=== PATIENT | female | born 1970 | race Caucasian/White ===

== ENCOUNTER 2017-08-16 15:47 | Emergency (ER) | payer SELFPAY ==
--- OUTSIDE RECORDS SUMMARY | 2017-08-16 15:49 | XMS REPORT ---
:1970 [facility] Address [address] [place] [address] Dr. Bruno [address] [place] [id number] Care Team Providers Name Role Phone CONCHA VILLALPANDO Unavailable Unavailable Problems This patient has no known problems. Allergies, Adverse Reactions, Alerts This patient has no known allergies or adverse reactions. Medications This patient has no known medications. Results Test Description Test Time Test Comments Text Results Atomic Results Result Comments RAPID DRUG SCREEN, URINE 2017-05-16 12:50:00 Test Item Value Reference Range Comments BARBITURATE URINE (BEAKER) (test svys=085) Negative Negative BENZODIAZEPINE SCREEN URINE (BEAKER) (test btor=883) Negative Negative COCAINE (METAB.) SCREEN (BEAKER) (test iybt=4680) Negative Negative METHADONE SCREEN (BEAKER) (test woiq=7382) Negative Negative OPIATE SCREEN URINE (BEAKER) (test vnfs=809) Negative Negative CANNABINOID SCREEN URINE (BEAKER) (test xgwg=405) Positive Negative AMPH/METHAMPH SCREEN (BEAKER) (test xgmm=5193) Negative Negative PHENCYCLIDINE SCREEN URINE (BEAKER) (test wkpd=888) Negative Negative OXYCODONE SCREEN URINE (BEAKER) (test taxx=9421) Negative Negative DRUG CUTOFF CONC.Cocaine 300 ng/mL Cannabinoid 50 ng/mL Benzodiazepine 200 ng/mLBarbiturate 200 ng/ mLPhencyclidine 25 ng/mLOpiate 300 ng/mLMethadone 300 ng/mLAmphetamine/ 1000 ng/mL MethamphetamineOxycodone 300 ng/mLThis assay provides an unconfirmed qualitative test result for the clinical management of patients in emergency situations. Chain of custody not maintained. Some mlsp-tbj-ipqeste medications, as well as adulterants, may cause inaccurate results. Clinical correlation should be applied. A more comprehensive drug screen or confirmation of a detected drug may be performed upon request.RAD, CHEST, 1 VIEW, NON [id number] 12:49:00Reason for exam:-&gt ;chest painIs the patient ?->UnknownShould this be performed at the bedside?->YesFINAL REPORT Chest one view AP 05/16/2017 12:49 PM CLINICAL HISTORY: chest pain COMPARISON: None available FINDINGS: The lungs are clear. Cardiomediastinal contours are within normal limits. The central pulmonary vasculature is not engorged. IMPRESSION: Unremarkable frontal chest radiograph. Signed: Lebron Downey Verified Date/Time: 05/16/2017 12:49:42 Reading Location: [address] Consult Reading Room CREATINE KINASE (CK), TOTAL AND [id number] 12:27:00 Test Item Value Reference Range Comments CREATINE KINASE TOTAL (BEAKER) (test cjlo=025) 49 U/L 29-200 CREATINE KINASE-MB (BEAKER) (test hukj=628) 0.8 ng/mL 0.0-6.6 CREATINE KINASE-MB INDEX (BEAKER) (test yvrd=531) 1.6 % CK-MB Reference Range:<6.7 Normal6.7-10.0 Borderline>10.0 AbnormalSALICYLATE [id number] 12:25:00 Test Item Value Reference Range Comments SALICYLATE LEVEL (BEAKER) (test eqmx=432) < mg/dL 15.0-30.0 Therapeutic Range: 15.0-30.0 mg/dLToxic: >30.0 mg/dL Lethal: >70.0 mg/dLACETAMINOPHEN [id number] 12:25:00 Test Item Value Reference Range Comments ACETAMINOPHEN LEVEL (BEAKER) (test tehe=024) < ug/mL 10.0-30.0 Therapeutic Range: 10.0-30.0 g/mLToxic Levels: >200.0 g/mLURINALYSIS W / [id number] 12:24:00 Test Item Value Reference Range Comments COLOR (BEAKER) (test pfgx=070) Yellow CLARITY (BEAKER) (test ftad=072) Hazy SPECIFIC GRAVITY UA (BEAKER) (test 1.018 1.001-1.035 wpfu=905) PH UA (BEAKER) (test dqmp=042) 7.0 5.0-8.0 PROTEIN UA (BEAKER) (test xfld=769) 10 mg/dL Negative GLUCOSE UA (BEAKER) (test mcel=073) Negative Negative KETONES UA (BEAKER) (test acdf=446) Negative Negative BILIRUBIN UA (BEAKER) (test ebnt=299) Negative Negative BLOOD UA (BEAKER) (test feor=356) Negative Negative NITRITE UA (BEAKER) (test jiee=425) Negative Negative LEUKOCYTE ESTERASE UA (BEAKER) (test Negative Negative wlnw=759) UROBILINOGEN UA (BEAKER) (test qaej=002) 0.2 mg/dL 0.2-1.0 RBC UA (BEAKER) (test gxth=025) 0 /HPF WBC UA (BEAKER) (test txkg=268) 1 /HPF MUCUS (BEAKER) (test xkmx=6707) Many SQUAMOUS EPITHELIAL (BEAKER) (test 2 /HPF llho=298) AMORPHOUS CRYSTALS (BEAKER) (test Few rfes=4597) SOURCE(BEAKER) (test fcwr=5700) Urine, Clean Catch HEPATIC FUNCTION [id number] 12:20:00 Test Item Value Reference Range Comments TOTAL PROTEIN (BEAKER) (test pzjc=599) 7.0 gm/dL 6.0-8.3 ALBUMIN (BEAKER) (test dcty=2168) 4.2 g/dL 3.5-5.0 BILIRUBIN TOTAL (BEAKER) (test jizn=100) 0.6 mg/dL 0.2-1.2 BILIRUBIN DIRECT (BEAKER) (test ofhp=941) 0.2 mg/dL 0.1-0.5 ALKALINE PHOSPHATASE (BEAKER) (test qupp=970) 56 U/L 40-150 AST (SGOT) (BEAKER) (test yeaw=455) 13 U/L 5-34 ALT (SGPT) (BEAKER) (test pxhy=162) 9 U/L 6-55 BASIC METABOLIC [id number] 12:20:00 Test Item Value Reference Range Comments SODIUM (BEAKER) (test 139 meq/L 136-145 iqjk=123) POTASSIUM (BEAKER) (test 3.5 meq/L 3.5-5.1 pnwc=321) CHLORIDE (BEAKER) (test 107 meq/L 98-107 etva=014) CO2 (BEAKER) (test 23 meq/L 22-29 itfm=245) BLOOD UREA NITROGEN 11 mg/dL 7-21 (BEAKER) (test yqzi=445) CREATININE (BEAKER) 0.59 mg/dL 0.57-1.25 (test qpgo=684) GLUCOSE RANDOM (BEAKER) 108 mg/dL 70-105 (test znyj=689) CALCIUM (BEAKER) (test 9.3 mg/dL 8.4-10.2 mkxx=343) EGFR (BEAKER) (test 110 mL/min/1.73 sq INSUFFICIENT CLINICAL DATA qseo=6676) m TO CALCULATE ESTIMATED GFR. [id number] 12:18:00 Test Item Value Reference Range Comments ETHANOL (BEAKER) (test diha=497) < mg/dL <=10 CBC W/PLT COUNT & AUTO [id number] 11:50:00 Test Item Value Reference Range Comments WHITE BLOOD CELL COUNT (BEAKER) (test irrs=188) 9.6 K/ L 3.5-10.5 RED BLOOD CELL COUNT (BEAKER) (test ufne=413) 4.67 M/ L 3.93-5.22 HEMOGLOBIN (BEAKER) (test jwnq=231) 15.4 GM/DL 11.2-15.7 HEMATOCRIT (BEAKER) (test kdqn=462) 45.9 % 34.1-44.9 MEAN CORPUSCULAR VOLUME (BEAKER) (test uegi=522) 98.3 fL 79.4-94.8 MEAN CORPUSCULAR HEMOGLOBIN (BEAKER) (test 33.0 pg 25.6-32.2 bvdu=491) MEAN CORPUSCULAR HEMOGLOBIN CONC (BEAKER) (test 33.6 GM/DL 32.2-35.5 jhqg=875) RED CELL DISTRIBUTION WIDTH (BEAKER) (test 12.8 % 11.7-14.4 ofdu=358) PLATELET COUNT (BEAKER) (test gipg=145) 233 K/CU MM 150-450 MEAN PLATELET VOLUME (BEAKER) (test afvo=113) 10.5 fL 9.4-12.3 NUCLEATED RED BLOOD CELLS (BEAKER) (test 0 /100 WBC 0-0 ijbl=199) NEUTROPHILS RELATIVE PERCENT (BEAKER) (test 71 % iqkd=596) LYMPHOCYTES RELATIVE PERCENT (BEAKER) (test 23 % wqzz=551) MONOCYTES RELATIVE PERCENT (BEAKER) (test 6 % xepb=275) EOSINOPHILS RELATIVE PERCENT (BEAKER) (test 0 % lkqq=856) BASOPHILS RELATIVE PERCENT (BEAKER) (test 0 % ijkz=005) NEUTROPHILS ABSOLUTE COUNT (BEAKER) (test 6.77 K/ L 1.56-6.13 blum=274) LYMPHOCYTES ABSOLUTE COUNT (BEAKER) (test 2.16 K/ L 1.18-3.74 qiuz=286) MONOCYTES ABSOLUTE COUNT (BEAKER) (test 0.57 K/ L 0.24-0.36 ytxk=467) EOSINOPHILS ABSOLUTE COUNT (BEAKER) (test 0.03 K/ L 0.04-0.36 cdif=001) BASOPHILS ABSOLUTE COUNT (BEAKER) (test 0.02 K/ L 0.01-0.08 xfbv=087) IMMATURE GRANULOCYTES-RELATIVE PERCENT (BEAKER) 0 % 0-1 (test qqlv=8008)
--- OUTSIDE RECORDS SUMMARY | 2017-08-16 15:49 | XMS REPORT | Clinical Summary ---
:1970 Author Organization [facility] Address [address] [place] [address] Phone Care Team Providers Name Role Phone Unavailable Primary Care Provider Unavailable Allergies No Known Allergies Current Medications Prescription Sig. Disp. Refills Start Date End Date Status traMADol (ULTRAM) 50 mg Take 1 tablet (50 10 tablet 0 05/16/2017 Active tablet mg total) by mouth every 6 (six) hours as needed for Pain for up to 10 doses. Max Daily Amount: 200 mg Active Problems Not on file Encounters Date Type Specialty Care Team Description 05/16/2017 Emergency Emergency Medicine Norbreto Louise Other depression MD Pierce (Primary Dx);Other chronic pain 05/16/2017 Orders Only General Internal Medicine after 08/15/2016 Social History Tobacco Use Types Packs/Day Years Used Date Current Every Day Smoker Alcohol Use Drinks/Week oz/Week Comments No Sex Assigned at Date Recorded Not on file Last Filed Vital Signs Vital Sign Reading Time Taken Blood Pressure 142/82 05/16/2017 2:20 PM FAMILY PRACTICE PHYSICIAN ASSISTANT Pulse 78 05/16/2017 2:20 PM FAMILY PRACTICE PHYSICIAN ASSISTANT Temperature 36.7 C (98.1 F) 05/16/2017 2:20 PM FAMILY PRACTICE PHYSICIAN ASSISTANT Respiratory Rate 18 05/16/2017 2:20 PM FAMILY PRACTICE PHYSICIAN ASSISTANT Oxygen Saturation 100% 05/16/2017 2:20 PM FAMILY PRACTICE PHYSICIAN ASSISTANT Inhaled Oxygen Concentration - - Weight 72.6 kg (160 lb) 05/16/2017 11:15 AM FAMILY PRACTICE PHYSICIAN ASSISTANT Height - - Body Mass Index - - Plan of Treatment Not on file Results XR chest 1 view portable / bedside (05/16/2017 12:34 PM) Specimen Performing Laboratory GE RIS Narrative FINAL REPORT Chest one view AP 05/16/2017 12:49 PM CLINICAL HISTORY: chest pain COMPARISON: None available FINDINGS: The lungs are clear. Cardiomediastinal contours are within normal limits. The central pulmonary vasculature is not engorged. IMPRESSION: Unremarkable frontal chest radiograph. Signed: Lebron Downey MD Report Verified Date/Time:05/16/2017 12:49:42 Reading Location: [facility] [id number] Consult Reading Room Procedure Note Interface, External Ris In - 05/16/2017 1:07 PM FAMILY PRACTICE PHYSICIAN ASSISTANT FINAL REPORT Chest one view AP 05/16/2017 12:49 PM CLINICAL HISTORY: chest pain COMPARISON: None available FINDINGS: The lungs are clear. Cardiomediastinal contours are within normal limits. The central pulmonary vasculature is not engorged. IMPRESSION: Unremarkable frontal chest radiograph. Signed: Lebron Downey MD Report Verified Date/Time: 05/16/2017 12:49:42 Reading Location: [id number] Consult Reading Room Electrocardiogram, 12-lead (05/16/2017 11:39 AM)Only the most recent of2 resultswithin the time period is included. Specimen Performing Laboratory autoGraph Narrative Ventricular Rate 68 BPM Atrial Rate 68 BPM P-R Interval 134 ms QRS Duration 78 ms Q-T Interval 394 ms QTC Calculation(Bazett) 418 ms P [place] 60 degrees R [place] 49 degrees T [place] 41 degrees Poor data quality, interpretation may be adversely affected Normal sinus rhythm Cannot rule out Anterior infarct (cited on or before 16-MAY-2017) Abnormal ECG When compared with ECG of 16-MAY-2017 11:38, No significant change was found Confirmed by Zachariah PERSAUD, ALIX ([id number]) on 05/17/2017 7:50:30 AM Procedure Note Interface, External Ris In - 05/17/2017 7:50 AM FAMILY PRACTICE PHYSICIAN ASSISTANT Ventricular Rate 68 BPM Atrial Rate 68 BPM P-R Interval 134 ms QRS Duration 78 ms Q-T Interval 394 ms QTC Calculation(Bazett) 418 ms P [place] 60 degrees R [place] 49 degrees T [place] 41 degrees Poor data quality, interpretation may be adversely affected Normal sinus rhythm Cannot rule out Anterior infarct (cited on or before 16-MAY-2017) Abnormal ECG When compared with ECG of 16-MAY-2017 11:38, No significant change was found Confirmed by Zachariah PERSAUD BASANT ([id number]) on 05/17/2017 7:50:30 AM Rapid drug screen, urine (05/16/2017 11:35 AM) Component Value Ref Range Barbiturate Screen Negative Negative Benzodiazepine Screen Negative Negative Cocaine (Metab.) Screen Negative Negative Methadone Screen Negative Negative Opiate Screen Negative Negative Cannabinoid Screen Positive (A) Negative Amph/Methamph Screen Negative Negative Phencyclidine Screen Negative Negative Oxycodone Screen Negative Negative Specimen Performing Laboratory Urine - Urine, Clean Catch [address] [address] Narrative DRUGCUTOFF CONC. Cocaine 300 ng/mL Jyumzhrjdxx03 ng/mL Xwoopjyodenvsy472 ng/mL Barbiturate 200 ng/mL Uryffmopekpue83 ng/mL Zjrcai282 ng/mL Methadone 300 ng/mL Amphetamine/ 1000 ng/mL Methamphetamine Oxycodone 300 ng/mL This assay provides an unconfirmed qualitative test result for the clinical management of patients in emergency situations. Chain of custody not maintained. Some bxck-sfz-ijjquua medications, as well as adulterants, may cause inaccurate results. Clinical correlation should be applied. A more comprehensive drug screen or confirmation of a detected drug may be performed upon request. Urinalysis w/ Microscopic (05/16/2017 11:35 AM) Component Value Ref Range Color, UA Yellow Clarity, UA Hazy Specific [place], UA 1.018 1.001 - 1.035 pH, UA 7.0 5.0 - 8.0 Protein, UA 10 mg/dL (A) Negative Glucose, UA Negative Negative Ketones, UA Negative Negative Bilirubin, UA Negative Negative Blood, UA Negative Negative Nitrite, UA Negative Negative Leukocytes, UA Negative Negative Urobilinogen, UA 0.2 0.2 - 1.0 mg/dL RBC, UA 0 /HPF WBC, UA 1 /HPF Mucus Many Squam Epithel, UA 2 /HPF Amorphous Crystals Few Specimen Source Urine, Clean Catch Specimen Performing Laboratory Urine - Urine, Clean Catch [address] [address] CBC with platelet count + automated diff (05/16/2017 11:31 AM) Component Value Ref Range WBC 9.6 3.5 - 10.5 K/L RBC 4.67 3.93 - 5.22 M/L Hemoglobin 15.4 11.2 - 15.7 GM/DL Hematocrit 45.9 (H) 34.1 - 44.9 % MCV 98.3 (H) 79.4 - 94.8 fL MCH 33.0 (H) 25.6 - 32.2 pg MCHC 33.6 32.2 - 35.5 GM/DL RDW 12.8 11.7 - 14.4 % Platelets 233 150 - 450 K/CU MM MPV 10.5 9.4 - 12.3 fL nRBC 0 0 - 0 /100 WBC % Neutros 71 % % Lymphs 23 % % Monos 6 % % Eos 0 % % Baso 0 % # Neutros 6.77 (H) 1.56 - 6.13 K/L # Lymphs 2.16 1.18 - 3.74 K/L # Monos 0.57 (H) 0.24 - 0.36 K/L # Eos 0.03 (L) 0.04 - 0.36 K/L # Baso 0.02 0.01 - 0.08 K/L Immature Granulocytes-Relative 0 0 - 1 % Specimen Performing Laboratory Blood - Arm, [address] [address] CBC with platelet count + automated diff (05/16/2017 11:31 AM) Specimen Performing Laboratory Blood Narrative The following orders were created for panel order CBC with platelet count + automated diff. Procedure Abnormality Status --------- ------ CBC with platelet count ...[[id number]]AbnormalFinal result Please view results for these tests on the individual orders. Creatine Kinase (CK), Total and MB (05/16/2017 11:31 AM) Component Value Ref Range Total CK 49 29 - 200 U/L CK-MB 0.8 0.0 - 6.6 ng/mL MB Relative Index 1.6 % Specimen Performing Laboratory Blood - Arm, [address] [address] Narrative CK-MB Reference Range: <6.7Normal 6.7-10.0Borderline >10.0 Abnormal Ethanol (05/16/2017 11:31 AM) Component Value Ref Range Ethanol Lvl <10 <=10 mg/dL Specimen Performing Laboratory Blood - Arm, [address] [address] Acetaminophen level (05/16/2017 11:31 AM) Component Value Ref Range Acetaminophen Level <5.7 (L) 10.0 - 30.0 ug/mL Specimen Performing Laboratory Blood - Arm, [address] [address] Narrative Therapeutic Range: 10.0-30.0 g/mL Toxic Levels:>200.0 g/mL Salicylate level (05/16/2017 11:31 AM) Component Value Ref Range Salicylate Lvl <5.0 (L) 15.0 - 30.0 mg/dL Specimen Performing Laboratory Blood - Arm, [address] [address] Narrative Therapeutic Range: 15.0-30.0 mg/dL Toxic: >30.0 mg/dL Lethal:>70.0 mg/dL Hepatic function panel (05/16/2017 11:31 AM) Component Value Ref Range Protein, Total 7.0 6.0 - 8.3 gm/dL Albumin 4.2 3.5 - 5.0 g/dL Total Bilirubin 0.6 0.2 - 1.2 mg/dL Bilirubin, Direct 0.2 0.1 - 0.5 mg/dL Alkaline Phosphatase 56 40 - 150 U/L AST 13 5 - 34 U/L ALT 9 6 - 55 U/L Specimen Performing Laboratory Blood - Arm, [address] [address] Basic Metabolic Panel (05/16/2017 11:31 AM) Component Value Ref Range Sodium 139 136 - 145 meq/L Potassium 3.5 3.5 - 5.1 meq/L Chloride 107 98 - 107 meq/L CO2 23 22 - 29 meq/L BUN 11 7 - 21 mg/dL Creatinine 0.59 0.57 - 1.25 mg/dL Glucose 108 (H) 70 - 105 mg/dL Calcium 9.3 8.4 - 10.2 mg/dL EGFR 110Comment: INSUFFICIENT CLINICAL DATA TO CALCULATE mL/min/1.73 sq m ESTIMATED GFR. Specimen Performing Laboratory Blood - Arm, [address] [address] after 08/15/2016
--- NOTE | 2017-08-16 17:10 | ER ---
Nurse's Notes [facility] Name: Ada Downs Age: 47 yrs Sex: Female : 1970 Arrival Date: 08/16/2017 Time: 15:49 Bed 9 Private MD: None, None Diagnosis: Patient's unintentional underdosing of medication regimen Presentation: 08/16 15:55 Presenting complaint: Patient states: i was released from [facility] and i am on Geodon tw2 80mg twice a day, prozac 20 mg once day and gabapentin 300 mg once day. Transition of care: patient was not received from another setting of care. Onset of symptoms was August 16, 2017. Risk Assessment: Do you want to hurt yourself or someone else? Patient reports no desire to harm self or others. Initial Sepsis Screen: Does the patient meet any 2 criteria? No. Patient's initial sepsis screen is negative. Does the patient have a suspected source of infection? No. Patient's initial sepsis screen is negative. Care prior to arrival: None. 15:55 Method Of Arrival: Ambulatory tw2 15:55 Acuity: JEANNIE 5 tw2 Triage Assessment: 17:00 General: Appears in no apparent distress. well developed, well nourished, Behavior is rk2 calm, cooperative. 17:00 Pain: Denies pain. Neuro: No deficits noted. Level of Consciousness is alert, obeys rk2 commands, Oriented to person, place, time, situation. Respiratory: Airway is patent Respiratory effort is even, unlabored, Respiratory pattern is regular, symmetrical. Derm: Skin is pink, warm \T\ dry. 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 - Social history:: Smoking status: Patient/guardian denies using tobacco. - Ebola Screening: : Patient denies travel to an Ebola-affected area in the 21 days before illness onset. Screenin:00 Abuse screen: Denies threats or abuse. rk2 17:00 Nutritional screening: No deficits noted. Tuberculosis screening: No symptoms or risk rk2 factors identified. Fall Risk None identified. Vital Signs: 15:56 BP 124 / 91; Pulse 70; Resp 17; Temp 97.8(TE); Pulse Ox 98% on R/A; Weight 72.57 kg tw2 (R); Height 5 ft. 3 in. (160.02 cm); Pain 0/10; 17:28 Pulse 87; Resp 17; Pulse Ox 98% on R/A; rk2 15:56 Body Mass Index 28.34 (72.57 kg, 160.02 cm) tw2 ED Course: 15:49 Patient arrived in ED. mr 15:49 None, None is Private Physician. mr 15:56 Triage completed. tw2 15:56 Arm band placed on. tw2 15:59 Tori Dudley, RN is Primary Nurse. rk2 16:07 [facility] snw 16:07 Brady Mccoy MD is Attending Physician. snw 17:00 Patient has correct armband on for positive identification. Call light in reach. rk2 17:29 No provider procedures requiring assistance completed. Patient did not have IV access rk2 during this emergency room visit. Administered Medications: No medications were administered Outcome: 17:09 Discharge ordered by . snw 17:29 Discharged to home ambulatory. rk2 17:29 Condition: good 17:29 Discharge instructions given to patient, Prescriptions given X 3. 17:29 Patient left the ED. rk2 Signatures: Neida Johnson FNP-C FNP-[place]rd Ilene Ortega, RN RN tw2 Tori Dudley, RITCHIE RN rk2
--- NOTE | 2017-08-16 17:10 | EDPHYS ---
Physician Documentation [facility] Name: Ada Downs Age: 47 yrs Sex: Female : 1970 Arrival Date: 08/16/2017 Time: 15:49 Bed 9 Private MD: None, None ED Physician Brady Mccoy HPI: 08/16 19:40 This 47 yrs old Female presents to ER via Ambulatory with complaints of snw Medication Refill. 19:40 The patient presents to the emergency department requesting refill(s) for: prozac, snw neurontin, geodon. The patient chronically suffers from Schizophrenia, bipolar. It is unknown whether or not the patient has had similar symptoms in the past. The patient has not recently seen a physician. Pt just released from [facility], unable to get meds refilled. Last medicated yesterday. 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 - Social history:: Smoking status: Patient/guardian denies using tobacco. - Ebola Screening: : Patient denies travel to an Ebola-affected area in the 21 days before illness onset. ROS: 19:39 Constitutional: Negative for fever, chills, and weight loss, Eyes: Negative for injury, snw pain, redness, and discharge, ENT: Negative for injury, pain, and discharge, Neck: Negative for injury, pain, and swelling, Cardiovascular: Negative for chest pain, palpitations, and edema, Respiratory: Negative for shortness of breath, cough, wheezing, and pleuritic chest pain, Abdomen/GI: Negative for abdominal pain, nausea, vomiting, diarrhea, and constipation, Back: Negative for injury and pain, : Negative for injury, bleeding, discharge, and swelling, MS/Extremity: Negative for injury and deformity, Skin: Negative for injury, rash, and discoloration, Neuro: Negative for headache, weakness, numbness, tingling, and seizure, Psych: Negative for depression, anxiety, suicide ideation, homicidal ideation, and hallucinations. Exam: 19:39 Constitutional: This is a well developed, well nourished patient who is awake, alert, snw and in no acute distress. Head/Face: Normocephalic, atraumatic. Eyes: Pupils equal round and reactive to light, extra-ocular motions intact. Lids and lashes normal. Conjunctiva and sclera are non-icteric and not injected. Cornea within normal limits. Periorbital areas with no swelling, redness, or edema. ENT: Nares patent. No nasal discharge, no septal abnormalities noted. Tympanic membranes are normal and external auditory canals are clear. Oropharynx with no redness, swelling, or masses, exudates, or evidence of obstruction, uvula midline. Mucous membranes moist. Neck: Trachea midline, no thyromegaly or masses palpated, and no cervical lymphadenopathy. Supple, full range of motion without nuchal rigidity, or vertebral point tenderness. No Meningismus. Chest/axilla: Normal chest wall appearance and motion. Nontender with no deformity. No lesions are appreciated. Cardiovascular: Regular rate and rhythm with a normal S1 and S2. No gallops, murmurs, or rubs. Normal PMI, no JVD. No pulse deficits. Respiratory: Lungs have equal breath sounds bilaterally, clear to auscultation and percussion. No rales, rhonchi or wheezes noted. No increased work of breathing, no retractions or nasal flaring. Abdomen/GI: Soft, non-tender, with normal bowel sounds. No distension or tympany. No guarding or rebound. No evidence of tenderness throughout. Back: No spinal tenderness. No costovertebral tenderness. Full range of motion. Skin: Warm, dry with normal turgor. Normal color with no rashes, no lesions, and no evidence of cellulitis. MS/ Extremity: Pulses equal, no cyanosis. Neurovascular intact. Full, normal range of motion. Neuro: Awake and alert, GCS 15, oriented to person, place, time, and situation. Cranial nerves II-XII grossly intact. Motor strength 5/5 in all extremities. Sensory grossly intact. Cerebellar exam normal. Normal gait. Psych: Awake, alert, with orientation to person, place and time. Behavior, mood, and affect are within normal limits. Vital Signs: 15:56 BP 124 / 91; Pulse 70; Resp 17; Temp 97.8(TE); Pulse Ox 98% on R/A; Weight 72.57 kg tw2 (R); Height 5 ft. 3 in. (160.02 cm); Pain 0/10; 17:28 Pulse 87; Resp 17; Pulse Ox 98% on R/A; rk2 15:56 Body Mass Index 28.34 (72.57 kg, 160.02 cm) tw2 MDM: 16:12 Patient medically screened. snw 19:40 Data reviewed: vital signs, nurses notes. Data interpreted: Pulse oximetry: on room air snw is 98 %. Interpretation: normal. Counseling: I had a detailed discussion with the patient and/or guardian regarding: the historical points, exam findings, and any diagnostic results supporting the discharge/admit diagnosis, the need for outpatient follow up, to return to the emergency department if symptoms worsen or persist or if there are any questions or concerns that arise at home. Special discussion: I have referred the patient to see his PCP for further evaluation of high blood pressure. Based on the history and exam findings, there is no indication for further emergent testing or inpatient evaluation. I discussed with the patient/guardian the need to see the primary care provider for further evaluation of the symptoms. Administered Medications: No medications were administered Disposition: 08/17 07:06 Co-signature as Attending Physician, Brady Mccoy MD. rn Disposition: 08/16/17 17:09 Discharged to Home. Impression: Patient's unintentional underdosing of medication regimen. - Condition is Stable. - Discharge Instructions: Medicine Refill at the Emergency Department. - Prescriptions for ziprasidone HCl 80 mg Oral capsule - take 1 capsule by ORAL route 2 times per day with food; 40 capsule. Neurontin 300 mg Oral Capsule - take 1 capsule by ORAL route every 8 hours; 30 capsule. Prozac 20 mg Oral Capsule - take 1 capsule by ORAL route once daily; 30 capsule. - Medication Reconciliation Form, Thank You Letter, Antibiotic Education, Prescription Opioid Use form. - Follow up: Private Physician; When: 2 - 3 days; Reason: Recheck today's complaints, Continuance of care, Re-evaluation by your physician. Follow up: Emergency Department; When: As needed; Reason: Worsening of condition. Signatures: Neida Johnson, DIRECTOR WOMEN-C DIRECTOR WOMEN-Csnw Brady Mccoy MD MD rn Ilene Ortega RN RN tw2 Tori Dudley RN RN rk2 Corrections: (The following items were deleted from the chart) 08/16 17:29 17:09 08/16/2017 17:09 Discharged to Home. Impression: Patient's unintentional rk2 underdosing of medication regimen. Condition is Stable. Forms are Medication Reconciliation Form, Thank You Letter, Antibiotic Education, Prescription Opioid Use. Follow up: Private Physician; When: 2 - 3 days; Reason: Recheck today's complaints, Continuance of care, Re-evaluation by your physician. Follow up: Emergency Department; When: As needed; Reason: Worsening of condition. snw
== END 2017-08-16 17:29 | disposition home or self-care (01) ==
LOC: ER 15:47
DX: Z91.138 Patient's unintentional underdosing of medication regimen for other reason (principal); F31.9 Bipolar disorder, unspecified; F20.9 Schizophrenia, unspecified
CPT/HCPCS: 99282

== ENCOUNTER 2018-07-19 23:15 | Emergency (ER) | payer SELFPAY ==
--- OUTSIDE RECORDS SUMMARY | 2018-07-19 23:17 | XMS REPORT | Clinical Summary ---
:1970 Author Organization [facility] Address [address] [place] [address] Care Team Providers Name Role Phone Brendon Primary Care Provider Allergies No Known Allergies Medications Medication Sig Dispensed Refills Start Date End Date Status traMADol (ULTRAM) 50 Take 1 tablet (50 10 tablet 0 05/16/2017 Active mg tablet mg total) by mouth every 6 (six) hours as needed for Pain for up to 10 doses. Max Daily Amount: 200 mg Active Problems Not on file Social History Tobacco Use Types Packs/Day Years Used Date Current Every Day Smoker Alcohol Use Drinks/Week oz/Week Comments No Sex Assigned at Date Recorded Not on file Job Start Date Occupation Industry Not on file Not on file Not on file Travel History Travel Start Travel End No recent travel history available. Last Filed Vital Signs Not on file Plan of Treatment Not on file Results Not on fileafter 07/18/2017
--- OUTSIDE RECORDS SUMMARY | 2018-07-19 23:18 | XMS REPORT ---
:1970 Author [facility] Address [address] [place] [address] Dr. Bruno [address] [place] [id number] Care Team Providers Name Role Phone CONCHA [...] Reference Range Comments BARBITURATE URINE (BEAKER) (test ezry=020) Negative Negative BENZODIAZEPINE SCREEN URINE (BEAKER) (test fbuw=234) Negative Negative COCAINE (METAB.) SCREEN (BEAKER) (test svju=7640) Negative Negative METHADONE SCREEN (BEAKER) (test iphj=5105) Negative Negative OPIATE SCREEN URINE (BEAKER) (test dhru=058) Negative Negative CANNABINOID SCREEN URINE (BEAKER) (test ikjm=674) Positive Negative AMPH/METHAMPH SCREEN (BEAKER) (test rfly=8696) Negative Negative PHENCYCLIDINE SCREEN URINE (BEAKER) (test xfvv=276) Negative Negative OXYCODONE SCREEN URINE (BEAKER) (test bfli=5321) Negative Negative DRUG CUTOFF CONC.Cocaine 300 ng/mL Cannabinoid 50 ng/mL Benzodiazepine 200 ng/mLBarbiturate 200 ng/ mLPhencyclidine 25 ng/mLOpiate 300 ng/mLMethadone 300 ng/mLAmphetamine/ 1000 ng/mL MethamphetamineOxycodone 300 ng/mLThis assay provides an unconfirmed qualitative test result for the clinical management of patients in emergency situations. Chain of custody not maintained. Some wrdj-hgu-fzlfajg medications, as well as adulterants, may cause inaccurate results. Clinical correlation should be applied. A more comprehensive drug screen or confirmation of a detected drug may be performed upon request.RAD, CHEST, 1 VIEW, NON [id number] 12:49:00Reason for exam:-&gt ;chest painIs the patient ?->UnknownShould this be performed at the bedside?->YesFINAL REPORT Chest one view AP 05/16/2017 12:49 PM CLINICAL HISTORY: chest pain COMPARISON: None available FINDINGS: The lungs are clear. Cardiomediastinal contours are within normal limits. The central pulmonary vasculature is not engorged. IMPRESSION: Unremarkable frontal chest radiograph. Signed: Lebron Downey Verified Date/Time: 05/16/2017 12:49:42 Reading Location: [address] Consult Reading Room CREATINE KINASE (CK), TOTAL AND [id number] 12:27:00 Test Item Value Reference Range Comments CREATINE KINASE TOTAL (BEAKER) (test qexi=458) 49 U/L 29-200 CREATINE KINASE-MB (BEAKER) (test samv=398) 0.8 ng/mL 0.0-6.6 CREATINE KINASE-MB INDEX (BEAKER) (test fjak=118) 1.6 % CK-MB Reference Range:<6.7 Normal6.7-10.0 Borderline>10.0 AbnormalSALICYLATE [id number] 12:25:00 Test Item Value Reference Range Comments SALICYLATE LEVEL (BEAKER) (test rwwr=469) < mg/dL 15.0-30.0 Therapeutic Range: 15.0-30.0 mg/dLToxic: >30.0 mg/dL Lethal: >70.0 mg/dLACETAMINOPHEN [id number] 12:25:00 Test Item Value Reference Range Comments ACETAMINOPHEN LEVEL (BEAKER) (test phmp=855) < ug/mL 10.0-30.0 Therapeutic Range: 10.0-30.0 g/mLToxic Levels: >200.0 g/mLURINALYSIS W / [id number] 12:24:00 Test Item Value Reference Range Comments COLOR (BEAKER) (test jhet=163) Yellow CLARITY (BEAKER) (test wbnt=968) Hazy SPECIFIC GRAVITY UA (BEAKER) (test 1.018 1.001-1.035 cpua=317) PH UA (BEAKER) (test dlyl=895) 7.0 5.0-8.0 PROTEIN UA (BEAKER) (test igzq=905) 10 mg/dL Negative GLUCOSE UA (BEAKER) (test sxpd=822) Negative Negative KETONES UA (BEAKER) (test djtt=477) Negative Negative BILIRUBIN UA (BEAKER) (test kcte=857) Negative Negative BLOOD UA (BEAKER) (test zrze=541) Negative Negative NITRITE UA (BEAKER) (test lbub=126) Negative Negative LEUKOCYTE ESTERASE UA (BEAKER) (test Negative Negative fthe=791) UROBILINOGEN UA (BEAKER) (test bhbm=315) 0.2 mg/dL 0.2-1.0 RBC UA (BEAKER) (test tfxr=528) 0 /HPF WBC UA (BEAKER) (test byyb=862) 1 /HPF MUCUS (BEAKER) (test vntf=0083) Many SQUAMOUS EPITHELIAL (BEAKER) (test 2 /HPF yqiq=995) AMORPHOUS CRYSTALS (BEAKER) (test Few yndi=5339) SOURCE(BEAKER) (test gxbx=5827) Urine, Clean Catch HEPATIC FUNCTION [id number] 12:20:00 Test Item Value Reference Range Comments TOTAL PROTEIN (BEAKER) (test qsiw=745) 7.0 gm/dL 6.0-8.3 ALBUMIN (BEAKER) (test zvix=6272) 4.2 g/dL 3.5-5.0 BILIRUBIN TOTAL (BEAKER) (test bwru=528) 0.6 mg/dL 0.2-1.2 BILIRUBIN DIRECT (BEAKER) (test yvib=741) 0.2 mg/dL 0.1-0.5 ALKALINE PHOSPHATASE (BEAKER) (test rsjc=015) 56 U/L 40-150 AST (SGOT) (BEAKER) (test cqjg=733) 13 U/L 5-34 ALT (SGPT) (BEAKER) (test gseh=887) 9 U/L 6-55 BASIC METABOLIC [id number] 12:20:00 Test Item Value Reference Range Comments SODIUM (BEAKER) (test 139 meq/L 136-145 cffu=070) POTASSIUM (BEAKER) (test 3.5 meq/L 3.5-5.1 wfnu=110) CHLORIDE (BEAKER) (test 107 meq/L 98-107 gajr=986) CO2 (BEAKER) (test 23 meq/L 22-29 fcdg=581) BLOOD UREA NITROGEN 11 mg/dL 7-21 (BEAKER) (test jjmr=811) CREATININE (BEAKER) 0.59 mg/dL 0.57-1.25 (test yoyk=659) GLUCOSE RANDOM (BEAKER) 108 mg/dL 70-105 (test fpho=319) CALCIUM (BEAKER) (test 9.3 mg/dL 8.4-10.2 vpzt=038) EGFR (BEAKER) (test 110 mL/min/1.73 sq INSUFFICIENT CLINICAL DATA cqlk=4925) m TO CALCULATE ESTIMATED GFR. [id number] 12:18:00 Test Item Value Reference Range Comments ETHANOL (BEAKER) (test anbt=406) < mg/dL <=10 CBC W/PLT COUNT & AUTO [id number] 11:50:00 Test Item Value Reference Range Comments WHITE BLOOD CELL COUNT (BEAKER) (test usbb=460) 9.6 K/ L 3.5-10.5 RED BLOOD CELL COUNT (BEAKER) (test zchp=272) 4.67 M/ L 3.93-5.22 HEMOGLOBIN (BEAKER) (test mgwn=946) 15.4 GM/DL 11.2-15.7 HEMATOCRIT (BEAKER) (test gjvb=230) 45.9 % 34.1-44.9 MEAN CORPUSCULAR VOLUME (BEAKER) (test hioj=419) 98.3 fL 79.4-94.8 MEAN CORPUSCULAR HEMOGLOBIN (BEAKER) (test 33.0 pg 25.6-32.2 syxy=763) MEAN CORPUSCULAR HEMOGLOBIN CONC (BEAKER) (test 33.6 GM/DL 32.2-35.5 wvwp=187) RED CELL DISTRIBUTION WIDTH (BEAKER) (test 12.8 % 11.7-14.4 mowx=913) PLATELET COUNT (BEAKER) (test ovkm=692) 233 K/CU MM 150-450 MEAN PLATELET VOLUME (BEAKER) (test omhv=391) 10.5 fL 9.4-12.3 NUCLEATED RED BLOOD CELLS (BEAKER) (test 0 /100 WBC 0-0 qbjz=359) NEUTROPHILS RELATIVE PERCENT (BEAKER) (test 71 % iofp=447) LYMPHOCYTES RELATIVE PERCENT (BEAKER) (test 23 % fghc=473) MONOCYTES RELATIVE PERCENT (BEAKER) (test 6 % bkpr=834) EOSINOPHILS RELATIVE PERCENT (BEAKER) (test 0 % ptdb=539) BASOPHILS RELATIVE PERCENT (BEAKER) (test 0 % ihdl=269) NEUTROPHILS ABSOLUTE COUNT (BEAKER) (test 6.77 K/ L 1.56-6.13 awla=418) LYMPHOCYTES ABSOLUTE COUNT (BEAKER) (test 2.16 K/ L 1.18-3.74 fykr=784) MONOCYTES ABSOLUTE COUNT (BEAKER) (test 0.57 K/ L 0.24-0.36 tmec=301) EOSINOPHILS ABSOLUTE COUNT (BEAKER) (test 0.03 K/ L 0.04-0.36 smez=296) BASOPHILS ABSOLUTE COUNT (BEAKER) (test 0.02 K/ L 0.01-0.08 noju=422) IMMATURE GRANULOCYTES-RELATIVE PERCENT (BEAKER) 0 % 0-1 (test xeho=3678)
[2018-07-19 23:52] LABS: Absolute Lymphocytes (CBC) 2.7 K/uL (0.7-4.9); Absolute Monocytes 0.4 K/uL (0.1-1.3); Absolute Neutrophil 2.9 K/uL (1.8-8.0); Basophils % 0.7 % (0-1.3); Eosinophils % 2.1 % (0-4.4); Lymphocytes % 44.2 % (15.3-44.8); MPV 8.7 fL (7.6-11.3); Monocytes % 6.6 % (3.3-12.3); RBC Red Blood Cell Count 4.07 M/uL (3.86-4.86)
[2018-07-20] MEDS ORDERED: ONDANSETRON 4 MG/2 ML VIAL ONE (00:01)
[2018-07-20] MEDS ORDERED: MAGNE/ALUM HYDROXD 30 ML UCUP ONE (00:01)
[2018-07-20] MEDS ORDERED: FAMOTIDINE 20 MG/2 ML VIAL IV ONE (00:01)
[2018-07-20] MEDS ORDERED: LIDOCAINE VISCOUS 2% SOLN 15 ML UDC ONE (00:01)
[2018-07-20 00:09] LABS: ALT/SGPT 16 U/L (12-78); AST/SGOT 16 U/L (15-37); Albumin 3.7 g/dL (3.4-5.0); Alkaline Phosphatase 91 U/L (45-117); BUN Blood Urea Nitrogen 15 mg/dL (7-18); Bicarbonate 30 mmol/L (21-32); Bilirubin Direct < 0.1 mg/dL (0-0.2); Bilirubin Total 0.2 mg/dL (0.2-1.0); Glucose Level 116 mg/dL (74-106); Lipase 163 U/L (73-393); Potassium 3.6 mmol/L (3.5-5.1); Protein, Total 6.8 g/dL (6.4-8.2); Sodium Level 143 mmol/L (136-145)
--- NOTE | 2018-07-20 01:05 | ER ---
Nurse's Notes [facility] Name: Ada Downs Age: 48 yrs Sex: Female : 1970 Arrival Date: 07/19/2018 Time: 23:18 Bed 16 Private MD: Diagnosis: Upper abdominal pain, unspecified;Gastritis, unspecified Presentation: 07/19 23:20 Presenting complaint: Patient states: I have gallstones and it feels like that is ed1 acting up. Transition of care: patient was not received from another setting of care. Onset of symptoms was July 19, 2018 at 21:00. Risk Assessment: Do you want to hurt yourself or someone else? Patient reports no desire to harm self or others. Initial Sepsis Screen: Does the patient meet any 2 criteria? No. Patient's initial sepsis screen is negative. Does the patient have a suspected source of infection? No. Patient's initial sepsis screen is negative. Care prior to arrival: None. 23:20 Method Of Arrival: Ambulatory ed1 23:20 Acuity: JEANNIE 3 ed1 Triage Assessment: 23:22 General: Appears uncomfortable, Behavior is calm, cooperative. Pain: Complains of pain ed1 in epigastric area Pain radiates to back and chest Pain currently is 7 out of 10 on a pain scale. Quality of pain is described as burning, Pain began 2 hours ago. GI: Abdomen is non-distended, Reports upper abdominal pain, nausea, Patient currently denies diarrhea, vomiting. 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 - Social history:: Smoking status: Patient uses tobacco products, smokes one-half pack cigarettes per day. - Ebola Screening: : Patient negative for fever greater than or equal to 101.5 degrees Fahrenheit, and additional compatible Ebola Virus Disease symptoms Patient denies exposure to infectious person Patient denies travel to an Ebola-affected area in the 21 days before illness onset No symptoms or risks identified at this time. - Family history:: not pertinent. - Hospitalizations: : No recent hospitalization is reported. Screenin:45 Abuse screen: Denies threats or abuse. Nutritional screening: No deficits noted. jb4 Tuberculosis screening: No symptoms or risk factors identified. Fall Risk None identified. Assessment: 23:45 General: Appears in no apparent distress. comfortable, Behavior is calm, cooperative, jb4 appropriate for age. Pain: Complains of pain in epigastric area Pain does not radiate. Pain currently is 4 out of 10 on a pain scale. Neuro: Level of Consciousness is awake, alert, obeys commands, Oriented to person, place, time, situation. Cardiovascular: Patient's skin is warm and dry. Respiratory: Airway is patent Respiratory effort is even, unlabored, Respiratory pattern is regular, symmetrical. GI: Abdomen is non-distended, obese, Bowel sounds present X 4 quads. Abd is soft X 4 quads Abd is non tender in right lower quadrant and left lower quadrant Abdomen is tender to palpation in epigastric area, right upper quadrant and left upper quadrant. : No signs and/or symptoms were reported regarding the genitourinary system. EENT: No signs and/or symptoms were reported regarding the EENT system. Derm: Skin is intact, Skin is pink, warm \T\ dry. Musculoskeletal: Circulation, motion, and sensation intact. 07/20 01:00 Reassessment: Patient appears in no apparent distress at this time. Patient and/or jb4 family updated on plan of care and expected duration. Pain level reassessed. Patient is alert, oriented x 3, equal unlabored respirations, skin warm/dry/pink. Vital Signs: 07/19 23:22 BP 144 / 97; Pulse 73; Resp 20; Temp 98.1(O); Pulse Ox 96% on R/A; Weight 72.57 kg; ed1 Height 5 ft. 3 in. (160.02 cm); Pain 7/10; 07/20 01:07 BP 106 / 57; Pulse 64; Resp 18; Pulse Ox 99% on R/A; mt 01:32 BP 118 / 86; Pulse 67; Resp 18; Pulse Ox 98% on R/A; mt 07/19 23:22 Body Mass Index 28.34 (72.57 kg, 160.02 cm) ed1 ED Course: 07/19 23:18 Patient arrived in ED. am2 23:21 Triage completed. ed1 23:22 Arm band placed on right wrist. ed1 23:26 Brady Mccoy MD is Attending Physician. rn 23:30 Bam Mota, RN is Primary Nurse. jb4 23:45 Patient has correct armband on for positive identification. Bed in low position. Call jb4 light in reach. Side rails up X 1. Pulse ox on. NIBP on. 23:45 Initial lab(s) drawn, by il, sent to lab. Inserted saline lock: 22 gauge in left jb4 antecubital area, using aseptic technique. Blood collected. 23:51 EKG done, by ED staff, reviewed by Brady Mccoy MD. mt 07/20 01:38 No provider procedures requiring assistance completed. IV discontinued, intact, jb4 bleeding controlled. Administered Medications: 07/19 23:40 Drug: GI Cocktail without - (Maalox Suspension 30 ml, Lidocaine Liquid 2 % 15 jb4 ml) Route: PO; 07/20 01:21 Follow up: Response: No adverse reaction; Pain is decreased [facility] 07/19 23:42 Drug: Pepcid 20 mg Route: IVP; Site: left antecubital; 4 07/20 01:38 Follow up: Response: No adverse reaction [facility] 07/19 23:47 Drug: Zofran 4 mg Route: IVP; Site: left antecubital; [facility] 07/20 01:21 Follow up: Response: No adverse reaction; Nausea is decreased [facility] Outcome: 01:04 Discharge ordered by MD. rn 01:38 Discharged to home ambulatory. jb4 01:38 Condition: stable 01:38 Discharge instructions given to patient, Instructed on discharge instructions, follow up and referral plans. Demonstrated understanding of instructions, follow-up care. 01:40 Patient left the ED. jb4 Signatures: Brady Mccoy MD MD rn Riggs, Erika, RN RN ed1 Bam Mota, RN RN [facility] Kourtney Jackson formerly [facility] Yina Galvez [place] Corrections: (The following items were deleted from the chart) : 01:00 Abuse screen: Denies threats or abuse. jb4 jb4 01:00 Nutritional screening: No deficits noted. jb4 jb4 01:00 Tuberculosis screening: No symptoms or risk factors identified. jb4 jb4 01:13 01:00 Fall Risk None identified. jb4 jb4
--- NOTE | 2018-07-20 01:05 | EDPHYS ---
Physician Documentation [facility] Name: Ada Downs Age: 48 yrs Sex: Female : 1970 Arrival Date: 07/19/2018 Time: 23:18 Bed 16 Private MD: ED Physician Brady Mccoy HPI: 07/20 00:09 This 48 yrs old Female presents to ER via Ambulatory with complaints of rn Abdominal Pain, Epigastric Pain. 00:09 The patient presents with abdominal pain in the epigastric area. Onset: The rn symptoms/episode began/occurred last night. The symptoms do not radiate. Associated signs and symptoms: Pertinent positives: nausea, Pertinent negatives: blood in stools, chest pain, constipation, diarrhea, dysuria, fever. Modifying factors: The symptoms are alleviated by nothing, the symptoms are aggravated by food. Severity of pain: At its worst the pain was mild in the emergency department the pain is unchanged. The patient has experienced similar episodes in the past. Reports has both acid reflux and gallstones, not sure which is causing her problem, + burning epigastric pain that radiates to chest, began 30 min after eating, does not take acid medication.. CHEMISTRY INTERN: 07/19 23:22 LMP 05/2018 ed1 Historical: - Allergies: 23:22 No Known Allergies; ed1 - Home Meds: 23:22 None [Active]; ed1 - PMHx: 23:22 Bipolar disorder; Schizophrenia; kyphoid scoliosis; ed1 - PSHx: 23:22 Tubal ligation; ed1 - Immunization history:: Adult Immunizations up to date. - Social history:: Smoking status: Patient uses tobacco products, smokes one-half pack cigarettes per day. - Ebola Screening: : Patient negative for fever greater than or equal to 101.5 degrees Fahrenheit, and additional compatible Ebola Virus Disease symptoms Patient denies exposure to infectious person Patient denies travel to an Ebola-affected area in the 21 days before illness onset No symptoms or risks identified at this time. - Family history:: not pertinent. - Hospitalizations: : No recent hospitalization is reported. ROS: 07/20 00:09 Constitutional: Negative for fever, chills, and weight loss, Eyes: Negative for injury, rn pain, redness, and discharge, Cardiovascular: Negative for palpitations, and edema, Respiratory: Negative for shortness of breath, cough, wheezing, and pleuritic chest pain, Abdomen/GI: Negative for diarrhea, and constipation, MS/Extremity: Negative for injury and deformity, Skin: Negative for injury, rash, and discoloration, Neuro: Negative for headache, numbness, tingling, and seizure. Exam: 00:09 Constitutional: This is a well developed, well nourished patient who is awake, alert, rn and in no acute distress. Head/Face: Normocephalic, atraumatic. Eyes: Pupils equal round and reactive to light, extra-ocular motions intact. Lids and lashes normal. Conjunctiva and sclera are non-icteric and not injected. Cornea within normal limits. Periorbital areas with no swelling, redness, or edema. ENT: MMM Cardiovascular: Regular rate and rhythm. No pulse deficits. Respiratory: No increased work of breathing, no retractions or nasal flaring. Abdomen/GI: soft, mild epigastric tenderness, neg dale, no rebound MS/ Extremity: Pulses equal, no cyanosis. Neurovascular intact. Full, normal range of motion. Equal circumference. Neuro: Awake and alert, GCS 15, oriented to person, place, time, and situation. Cranial nerves II-XII grossly intact. Motor strength 5/5 in all extremities. Sensory grossly intact. 00:49 ECG was reviewed by the Attending Physician. rn Vital Signs: 07/19 23:22 BP 144 / 97; Pulse 73; Resp 20; Temp 98.1(O); Pulse Ox 96% on R/A; Weight 72.57 kg; ed1 Height 5 ft. 3 in. (160.02 cm); Pain 7/10; 07/20 01:07 BP 106 / 57; Pulse 64; Resp 18; Pulse Ox 99% on R/A; mt 01:32 BP 118 / 86; Pulse 67; Resp 18; Pulse Ox 98% on R/A; mt 07/19 23:22 Body Mass Index 28.34 (72.57 kg, 160.02 cm) ed1 MDM: 07/19 23:26 Patient medically screened. rn 07/20 01:01 Differential diagnosis: cholecystitis, Cholelithiasis, gastritis, gastroesophageal rn reflux disease, non-specific abd pain, pancreatitis, Peptic Ulcer Disease. Data reviewed: vital signs, nurses notes, lab test result(s), and as a result, I will discharge patient. Counseling: I had a detailed discussion with the patient and/or guardian regarding: the historical points, exam findings, and any diagnostic results supporting the discharge/admit diagnosis, lab results, the need for outpatient follow up, to return to the emergency department if symptoms worsen or persist or if there are any questions or concerns that arise at home. Response to treatment: the patient's symptoms have markedly improved after treatment, and as a result, I will discharge patient. Special discussion: I discussed with the patient/guardian in detail that at this point there is no indication for admission to the hospital. It is understood, however, that if the symptoms persist or worsen the patient needs to return immediately for re-evaluation. Based on the history and exam findings, there is no indication for further emergent testing or inpatient evaluation. I discussed with the patient/guardian the need to see the nail setter for further evaluation of the symptoms. ED course: Pt improved with antacid therapy, negative blood work and normal ecg, will dc home with instructions to take antacid therapy. . 07/19 23:31 Order name: Basic Metabolic Panel; Complete Time: 00: rn 07/19 23:31 Order name: CBC with Diff; Complete Time: 00:07/19 23:31 Order name: Hepatic Function; Complete Time: 00: rn 07/19 23:31 Order name: Lipase; Complete Time: 00: rn 07/19 23:31 Order name: IV Saline Lock; Complete Time: 23:43 rn 07/19 23:31 Order name: Labs collected and sent; Complete Time: 23:43 07/19 23:31 Order name: EKG; Complete Time: 23:32 rn 07/19 23:31 Order name: EKG - Nurse/Tech; Complete Time: 23:50 rn EC:49 Rate is 63 beats/min. Rhythm is regular. QRS [place] is Normal. IN interval is normal. QRS rn interval is normal. QT interval is normal. No Q waves. T waves are Normal. No ST changes noted. Clinical impression: Normal ECG. Interpreted by me. Administered Medications: 07/19 23:40 Drug: GI Cocktail without - (Maalox Suspension 30 ml, Lidocaine Liquid 2 % 15 jb4 ml) Route: PO; 07/20 01:21 Follow up: Response: No adverse reaction; Pain is decreased jb4 07/19 23:42 Drug: Pepcid 20 mg Route: IVP; Site: left antecubital; jb4 07/20 01:38 Follow up: Response: No adverse reaction jb4 07/19 23:47 Drug: Zofran 4 mg Route: IVP; Site: left antecubital; jb4 07/20 01:21 Follow up: Response: No adverse reaction; Nausea is decreased jb4 Disposition: 07/20/18 01:04 Discharged to Home. Impression: Upper abdominal pain, unspecified, Gastritis, unspecified. - Condition is Stable. - Discharge Instructions: Abdominal Pain, Adult, Gastritis, Adult. - Medication Reconciliation Form, Thank You Letter, Antibiotic Education, Prescription Opioid Use form. - Follow up: Private Physician; When: As needed; Reason: Recheck today's complaints, Re-evaluation by your physician. - Problem is new. - Symptoms have improved. Signatures: Dispatcher [employer] EDMS Brady Mccoy MD MD rn Riggs, Erika, RN RN ed1 Bam Mota RN RN jb4 Corrections: (The following items were deleted from the chart) 01:40 01:04 07/20/2018 01:04 Discharged to Home. Impression: Upper abdominal pain, jb4 unspecified; Gastritis, unspecified. Condition is Stable. Forms are Medication Reconciliation Form, Thank You Letter, Antibiotic Education, Prescription Opioid Use. Follow up: Private Physician; When: As needed; Reason: Recheck today's complaints, Re-evaluation by your physician. Problem is new. Symptoms have improved. rn
--- NOTE | 2018-07-20 08:38 | EKG ---
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
== END 2018-07-20 01:40 | disposition home or self-care (01) ==
LOC: ER 23:15
DX: K29.70 Gastritis, unspecified, without bleeding (principal); F31.9 Bipolar disorder, unspecified; F20.9 Schizophrenia, unspecified; F17.210 Nicotine dependence, cigarettes, uncomplicated
CPT/HCPCS: 36415; 80048; 80076; 83690; 85025; 93005; 96374; 96375; 99284; J2405

== ENCOUNTER 2020-02-11 20:46 | Emergency (ER) | payer SELFPAY ==
--- OUTSIDE RECORDS SUMMARY | 2020-02-11 20:48 | XMS REPORT | Clinical Summary ---
:1970 Author Organization [facility] Address [address] [place] [address] Care Team Providers Name Role Phone Brendon [...] Not on file Last Filed Vital Signs Not on file Plan of Treatment Health Maintenance Due Date Last Done Comments PNEUMOCOCCAL VACCINE 0-64 YRS (1 of 1 - PPSV23) 1976 CERVICAL CANCER SCREENING PAP ONLY (Age 21-65) 06/01/1991 LIPID PANEL 06/01/2015 INFLUENZA VACCINE (#1) 2019 Results Not on fileafter 02/10/2019
--- OUTSIDE RECORDS SUMMARY | 2020-02-11 20:49 | XMS REPORT | Continuity of Care Document ---
:1970 Author Organization [facility] t Address [address] [place] [address] Care Team Providers Name Role Phone Sharpless Primary Care Physician Afuwape, O Attending Clinician Unavailable Afuwape, O Attending Clinician Unavailable Allen, P Attending Clinician Unavailable Allen, P Attending Clinician Unavailable JADEN VILLALPANDO Attending Clinician Unavailable Afuwape, O Admitting Clinician Unavailable Allen, P Admitting Clinician Unavailable Payers Payer Name Policy Type Policy Number Effective Date Expiration Date S ource Problems This patient has no known problems. Allergies, Adverse Reactions, Alerts Allergy Allergy Status Severity Reaction(s) Onset Inactive Treating Comm ents Source Name Type Date Date Clinician No Known DA Active U [facility] 04-20 [facility] 00:00: d [address] [facility] Social History Social Habit Start Date Stop Date Quantity Comments Source Sex Assigned At [facility] Alcohol intake 2017-05-16 2017-05-16 Current [facility] es - 00:00:00 00:00:00 non-drinker of Medical Ce nter alcohol (finding) Smoking Status Start Date Stop Date Source Current every day smoker 2017-05-16 00:00:00 [facility] Medications Ordered Filled Start Stop Current Ordering Indication Dosage Frequency Signature Comments Components Source Medication Medication Date Date Medication? Clinician (SIG) Name Name traMADol Yes 50mg Take [address] [facility] [address] (ULTRAM) 50 2-19 tablet (50 Jennifer kes - mg tablet 00:00: mg total) Med ical 00 by mouth Center every 6 (six) hours as needed for Pain for up to 10 doses. Max Daily Amount: 200 mg Procedures This patient has no known procedures. Plan of Care Planned Activity Planned Date Details Comments Source Future Scheduled 2019-11-27 INFLUENZA VACCINE (#1) [facility]00 [code = INFLUENZA Medical Ce nter VACCINE (#1)] Future Scheduled 2015-06-[address] [facility] (procedure) [code = Medical Center [id number]] Future Scheduled 1991-06-[address] [facility]00 malignant neoplasm of Medica l Center cervix (procedure) [code = [id number]] Future Scheduled [address] [facility] - Test 00:00:00 0-64 YRS (1 of 1 - Medical C enter PPSV23) [code = PNEUMOCOCCAL VACCINE 0-64 YRS (1 of 1 - PPSV23)] Encounters Start End Encounter Admission Attending Care Care Encounter Source Date/Time Date/Time Type Type Clinicians Facility Department ID 2019-11-08 2019-11-09 Emergency 1 [facility] DEEPTI [id number] [facility]. 20:50:00 03:40:00 [facility] 2019-11-08 2019-11-08 Emergency 1 Jose [facility] DEEPTI [id number] St. 20:50:00 20:50:00 [facility]2019 812 [facility] 2019-10-15 2019-10-30 Inpatient 1 [facility] PSY [id number] St. 18:45:00 13:20:00 [facility] Results Test Description Test Time Test Comments Results Result Comments Source Complete Blood Count with Differential 2019-11-08 23:33:44 Test Item Value Reference Range Interpretation Comme nts WBC (test code = WBC) 9.8 x10 4.4-10.5 RBC (test code = RBC) 4.09 x10 3.75-5.20 Hgb (test code = Hgb) 13.4 g/dL 12.2-14.8 MCV (test code = MCV) 103.20 fL 80.00-100.00 H Hct (test code = Hct) 42.2 % 36.5-44.4 MCHC (test code = MCHC) 31.80 g/dL 32.00-37.50 L RDW CV (test code = RDW CV) 11.9 % 11.5-14.5 MCH (test code = MCH) 32.8 pg 27.0-32.5 H Platelets (test code = 181.0 x10 140.0-440.0 Platelets) MPV (test code = MPV) 10.3 fL N Slide Review (test code = Slide Auto Auto Result created by Review) GL_SJM_SLIDE_[id number] V_AUTO nRBC (test code = nRBC) 0 N NRBC Abs (test code = NRBC Abs) 0.00 x10 N IPF (test code = IPF) 0 % N Automated [id number] 23:33:44 Test Item Value Reference Range Interpretation Comments Neutro Auto (test code = Neutro 69.3 % 36.0-70.0 Auto) Lymph Auto (test code = Lymph Auto) 22.3 % 12.0-44.0 [place] Auto (test code = [place] Auto) 6.8 % 0.0-11.0 Eos, Auto (test code = Eos, Auto) 1.1 % 0.0-7.0 Basophil Auto (test code = Basophil 0.2 % 0.0-2.0 Auto) Neutro Absolute (test code = Neutro 6.8 x10 1.6-7.4 Absolute) Lymph Absolute (test code = Lymph 2.19 x10 .50-4.60 Absolute) [place] Absolute (test code = [place] .67 x10 .00-1.20 Absolute) Eos Absolute (test code = Eos 0.11 x10 0.00-0.74 Absolute) Baso Absolute (test code = Baso 0.02 x10 0.00-0.21 Absolute) IG [id number] 23:33:44 Test Item Value Reference Range Interpretation Comments IG (test code = IG) 0.3 % 0.0-5.0 IG Abs (test code = IG Abs) 0 x10 N Comprehensive Metabolic [id number] 22:49:11 Test Item Value Reference Range Interpretation Comments Sodium Level (test code = Sodium 140.0 mmol/L 136.0-145.0 Level) Potassium Level (test code = 4.10 mmol/L 3.50-5.10 Potassium Level) Chloride Level (test code = 107.0 mmol/L 98.0-107.0 Chloride Level) CO2 (test code = CO2) 27 mmol/L 20-31 Anion Gap (test code = Anion 5.7 mmol/L 5.0-15.0 Gap) BUN (test code = BUN) 18 mg/dL 9-23 Creatinine Level (test code = 0.64 mg/dL 0.55-1.02 Creatinine Level) BUN/Creat Ratio (test code = 28.1 ratio 10.0-20.0 H BUN/Creat Ratio) Glucose Level (test code = 125 mg/dL 74-106 H Glucose Level) Calcium Level (test code = 8.7 mg/dL 8.3-10.6 Calcium Level) Alk Phos (test code = Alk Phos) 81 U/L 46-116 Bilirubin Total (test code = 0.2 mg/dL 0.2-1.1 Bilirubin Total) Albumin Level (test code = 4.5 g/dL 3.2-4.8 Albumin Level) Protein Total (test code = 6.2 g/dL 5.7-8.2 Protein Total) ALT (test code = ALT) 16 U/L 10-49 AST (test code = AST) 24 U/L <=34 Globulin (test code = Globulin) 1.7 g/dL 2.3-3.5 L A/G Ratio (test code = A/G 2.6 g/dL 0.8-2.0 H Ratio) Hemolysis (test code = 0 g/dL 1-2 H Hemolysis) Icterus (test code = Icterus) 0 g/dL 1-2 H Lipemia (test code = Lipemia) 0 g/dL 1-2 H Comprehensive Metabolic [id number] 22:49:11 Test Item Value Reference Range Interpretation Comments Sodium Level (test 140.0 mmol/L 136.0-145.0 code = Sodium Level) Potassium Level 4.10 mmol/L 3.50-5.10 (test code = Potassium Level) Chloride Level (test 107.0 mmol/L 98.0-107.0 code = Chloride Level) CO2 (test code = 27 mmol/L 20-31 CO2) Anion Gap (test code 5.7 mmol/L 5.0-15.0 = Anion Gap) BUN (test code = 18 mg/dL 9-23 BUN) Creatinine Level 0.64 mg/dL 0.55-1.02 (test code = Creatinine Level) BUN/Creat Ratio 28.1 ratio 10.0-20.0 H (test code = BUN/Creat Ratio) Glucose Level (test 125 mg/dL 74-106 H code = Glucose Level) Calcium Level (test 8.7 mg/dL 8.3-10.6 code = Calcium Level) Alk Phos (test code 81 U/L 46-116 = Alk Phos) Bilirubin Total 0.2 mg/dL 0.2-1.1 (test code = Bilirubin Total) Albumin Level (test 4.5 g/dL 3.2-4.8 code = Albumin Level) Protein Total (test 6.2 g/dL 5.7-8.2 code = Protein Total) ALT (test code = 16 U/L 10-49 ALT) AST (test code = 24 U/L <=34 AST) Globulin (test code 1.7 g/dL 2.3-3.5 L = Globulin) A/G Ratio (test code 2.6 g/dL 0.8-2.0 H = A/G Ratio) eGFR AA (test code = >60 >=60 eGFR (e stimated eGFR AA) mL/min/1.73 m2 Glomerular Filtration Rate ) is an estimated va lue, calculated from the patient's serum creatinine usin g the MDRD equation. It is NOT the patient 's actual GFR. The eGFR provides a more clinically usef ul measure of kidn ey disease than se rum creatinine alone.This calculation noni es sex and race in to account, if the information is provided. If th e race is not provided, and t he patient is -Ankita n, multiply by 1.2 12. If sex is not provided, and t he patient is fema le, multiply by 0.7 42. Results for pat ients <18 years of ag e have not been validated by th e MDRD study and should be interpreted wit h caution. eGFR R esult Interpretation: eGFR > or = 60 is in the Normal RangeeGF R < 60 may mean kid francisco javier diseaseeGFR < 1 5 may mean kidney failure Rang es recommended by the National Kidney Foundation, http://nkdep.ni h.gov Hemolysis (test code 0 g/dL 1-2 H = Hemolysis) Icterus (test code = 0 g/dL 1-2 H Icterus) Lipemia (test code = 0 g/dL 1-2 H Lipemia) Acetaminophen [id number] 22:49:11 Test Item Value Reference Range Interpretation Comments Acetaminophen Level <0.2 mg/dL N Therapeu tic range (test code = 1.0-2.0 mg/dlTo xic Acetaminophen Level) concent ration 4 hours post ingestion - >15.0 mg/dlToxi c concentration 1 2 hours post emiliano stion - >4 mg/dl Alcohol [id number] 22:49:11 Test Item Value Reference Range Interpretation Comments Ethanol Level 7.3 mg/dL N The pharmacolo gical (test code = response to blo od alcohol Ethanol Level) levels may va ry from individual to i ndividual. The fatal carlos ntration has been report ed to be >400 mg/dl. Salicylate [id number] 22:49:11 Test Item Value Reference Range Interpretation Comments Salicylate Level (test <3.0 mg/dL N Salic ylate is toxic code = Salicylate above 30 m g/dl for Level) adults. Comprehensive Metabolic [id number] 22:49:11 Test Item Value Reference Range Interpretation Comments Sodium Level (test 140.0 mmol/L 136.0-145.0 code = Sodium Level) Potassium Level 4.10 mmol/L 3.50-5.10 (test code = Potassium Level) Chloride Level (test 107.0 mmol/L 98.0-107.0 code = Chloride Level) CO2 (test code = 27 mmol/L 20-31 CO2) Anion Gap (test code 5.7 mmol/L 5.0-15.0 = Anion Gap) BUN (test code = 18 mg/dL 9-23 BUN) Creatinine Level 0.64 mg/dL 0.55-1.02 (test code = Creatinine Level) BUN/Creat Ratio 28.1 ratio 10.0-20.0 H (test code = BUN/Creat Ratio) Glucose Level (test 125 mg/dL 74-106 H code = Glucose Level) Calcium Level (test 8.7 mg/dL 8.3-10.6 code = Calcium Level) Alk Phos (test code 81 U/L 46-116 = Alk Phos) Bilirubin Total 0.2 mg/dL 0.2-1.1 (test code = Bilirubin Total) Albumin Level (test 4.5 g/dL 3.2-4.8 code = Albumin Level) Protein Total (test 6.2 g/dL 5.7-8.2 code = Protein Total) ALT (test code = 16 U/L 10-49 ALT) AST (test code = 24 U/L <=34 AST) Globulin (test code 1.7 g/dL 2.3-3.5 L = Globulin) A/G Ratio (test code 2.6 g/dL 0.8-2.0 H = A/G Ratio) eGFR AA (test code = >60 >=60 eGFR (e stimated eGFR AA) mL/min/1.73 m2 Glomerular Filtration Rate ) is an estimated va lue, calculated from the patient's serum creatinine usin g the MDRD equation. It is NOT the patient 's actual GFR. The eGFR provides a more clinically usef ul measure of kidn ey disease than se rum creatinine alone.This calculation noni es sex and race in to account, if the information is provided. If th e race is not provided, and t he patient is -Ankita n, multiply by 1.2 12. If sex is not provided, and t he patient is fema le, multiply by 0.7 42. Results for pat ients <18 years of ag e have not been validated by th e MDRD study and should be interpreted wit h caution. eGFR R esult Interpretation: eGFR > or = 60 is in the Normal RangeeGF R < 60 may mean kid francisco javier diseaseeGFR < 1 5 may mean kidney failure Rang es recommended by the National Kidney Foundation, http://nkdep.ni h.gov eGFR Non-AA (test >60.00 >=60.00 eGFR (sahara mated code = eGFR Non-AA) mL/min/1.73 m2 Glomer ular Filtration Rate ) is an estimated va lue, calculated from the patient's serum creatinine usin g the MDRD equation. It is NOT the patient 's actual GFR. The eGFR provides a more clinically usef ul measure of kidn ey disease than se rum creatinine alone.This calculation noni es sex and race in to account, if the information is provided. If th e race is not provided, and t he patient is -Ankita n, multiply by 1.2 12. If sex is not provided, and t he patient is fema le, multiply by 0.7 42. Results for pat ients <18 years of ag e have not been validated by th e MDRD study and should be interpreted wit h caution. eGFR R esult Interpretation: eGFR > or = 60 is in the Normal RangeeGF R < 60 may mean kid francisco javier diseaseeGFR < 1 5 may mean kidney failure Rang es recommended by the National Kidney Foundation, http://nkdep.ni h.gov Hemolysis (test code 0 g/dL 1-2 H = Hemolysis) Icterus (test code = 0 g/dL 1-2 H Icterus) Lipemia (test code = 0 g/dL 1-2 H Lipemia) HCG Qualitative [id number] 22:47:33 Test Item Value Reference Range Interpretation Comments hCG Ur (test code = Negative If the r esult is hCG Ur) "Negative" in p atients suspected to be , recom mend retest with a s ample obtained 48 to 72 hours later, or by ordering a quantitative as say. If the result i s "Borderline" te sting should be repea jennifer in 48 to 72 hours. Lot # (test code = [id number] Lot #) Expiration Dt (test 11/25/2020 N code = Expiration Dt) Neg Control (test Negative code = Neg Control) Pos Control (test Positive code = Pos Control) Internal QC (test Acceptable code = Internal QC) Urinalysis [id number] 22:47:33 Test Item Value Reference Range Interpretation Comments UA WBC (test code = UA WBC) 0-5 0-5 UA RBC (test code = UA RBC) 0-5 0-5 UA Bacteria (test code = UA None Seen Bacteria) UA Squam Epithelial (test code = UA 0-5 Squam Epithelial) UA Amorph Mary Ann (test code = UA Moderate A Amorph Mary Ann) Urine [id number] 22:47:33 Test Item Value Reference Range Interpretation Comments Amphetamine Screen Ur Negative Negative The sp ecimen is (test code = presumptive pos itive Amphetamine Screen Ur) if th e analyte concentration i s equal to or greater t ashley 1000 ng/ml.If confirmation of positive result is desired, please order Amphetamine Confirmation, U rine within 7 days. Barbiturate Screen Ur Negative Negative The sp ecimen is (test code = presumptive pos itive Barbiturate Screen Ur) if th e analyte concentration i s equal to or greater t ashley 200 ng/ml.If confir mation of positive res ult is desired, please order Barbiturate Confirmation, U rine within 7 days. Benzodiazepines Ur Negative Negative The speci men is (test code = presumptive pos itive Benzodiazepines Ur) if the a nalyte concentration i s equal to or greater t ashley 200 ng/ml.If confir mation of positive res ult is desired, please order Benzodiazephine Confirmation, U rine within 7 days. Cocaine Screen Ur (test Positive Negative A The specimen is code = Cocaine Screen presum ptive positive Ur) if the analyte concentration i s equal to or greater t ashley 300 ng/ml.If confir mation of positive res ult is desired, please order Cocaine Metabol ite Confirmation, U rine within 7 days. Opiate Screen Ur (test Negative Negative The s pecimen is code = Opiate Screen presump tive positive Ur) if the analyte concentration i s equal to or greater t ashley 2000 ng/ml.If confirmation of positive result is desired, please order Opiate Confirm ation, Urine within 7 days. U PCP Scrn (test code = Negative Negative The specimen is U PCP Scrn) presumptive pos itive if the analyte concentration i s equal to or greater t ashley 25 ng/ml.If confir mation of positive res ult is desired, please order Phencyclidine Confirmation, U rine within 7 days. Cannabinoid Screen Ur Positive Negative A The sp ecimen is (test code = presumptive pos itive Cannabinoid Screen Ur) if th e analyte concentration i s equal to or greater t ashley 50 ng/ml.If confir mation of positive res ult is desired, please order Cannabinoid (TH C) Confirmation, U rine within 7 days. U Methadone Scr (test Negative Negative The sp ecimen is code = U Methadone Scr) pres umptive positive if the analyte concentration i s equal to or greater t ashley 300 ng/ml.If confir mation of positive res ult is desired, please order Methadone Confirmation, U rine within 7 days. U Propoxyphene (test Negative Negative The spe cimen is code = U Propoxyphene) presu mptive positive if the analyte concentration i s equal to or greater t ashley 300 ng/ml.If confir mation of positive res ult is desired, please order Propoxyphene Confirmation wi thin 7 days. Urinalysis with Culture, if [id number] 22:42:29 Test Item Value Reference Range Interpretation Comments UA Color (test code = UA Color) YELLO Yellow UA Appear (test code = UA Appear) SCLD Clear A UA pH (test code = UA pH) 7.5 N UA Spec Grav (test code = UA Spec 1.020 1.001-1.035 Grav) UA Glucose (test code = UA Glucose) NEG Negative UA Bili (test code = UA Bili) NEG Negative UA Ketones (test code = UA Ketones) NEG Negative UA Blood (test code = UA Blood) NEG Negative UA Protein (test code = UA Protein) NEG Negative UA Urobilinogen (test code = UA .2 mg/dL >0.2 Urobilinogen) UA Nitrite (test code = UA Nitrite) NEG Negative UA Leuk Est (test code = UA Leuk NEG Negative Est) UA Micro Ind? (test code = UA Micro Indicated Not Indicated A Ind?) HCG Qualitative [id number] 14:19:05 Test Item Value Reference Range Interpretation Comments HCG, Serum Qual (test code = HCG, Negative Negative Serum Qual) Thyroxine Free [id number] 13:02:56 Test Item Value Reference Range Interpretation Comments T4 Free (test code = T4 Free) 1.66 ng/dL 0.89-1.76 Triiodothyronine [id number] 13:02:56 Test Item Value Reference Range Interpretation Comments T3 Free (test code = T3 Free) 2.65 pg/mL 2.30-4.20 Thyroid Stimulating [id number] 09:19:22 Test Item Value Reference Range Interpretation Comments TSH (test code = TSH) 0.341 mcIU/mL 0.550-4.780 L Lipid [id number] 13:21:26 Test Item Value Reference Range Interpretation Comments Cholesterol Total 222 mg/dL N Low-risk l evel (test code = (desirable) - < 200 Cholesterol Total) mg/dlMode rate-risk level (borderli ne) - 200-239 mg/dlHigh-risk level - ?240 mg/dl Triglycerides (test 48 mg/dL N Normal - <150 code = Triglycerides) mg/dlB orderline high - 150-199 mg/dl High - 200-499 mg/dl Very high - ?500 mg/ dl HDL (test code = HDL) 54.80 mg/dL N Low-ri sk level (desirable) - ? 60 mg/dlHigh-risk level (undesirable) - <40 mg/dl LDL (test code = LDL) 158 mg/dL N The eq uation being used in this calculation is LDL = (Chol - HDL) - (Trig / 5) VLDL (test code = 10 mg/dL 5-40 The equati on being VLDL) used in this calculation is VLDL = Trig / 5 Chol/HDL (test code = 4.1 ratio <=5.0 Chol/HDL) LDL/HDL Ratio (test 4 N The equa tion being code = LDL/HDL Ratio) used i n this calculation is LDL/HDL Ratio=L DL Calc/HDL Chol Hemoglobin [id number] 13:15:51 Test Item Value Reference Range Interpretation Comments Hemoglobin A1c (test code 4.7 % 4.0-5.8 Di abetic >=6.5 = Hemoglobin A1c) %Prediabet es 5.7-6.4 %Normal <5.7 % RPR [id number] 12:11:10 Test Item Value Reference Range Interpretation Comments RPR Qual (test code = RPR Qual) Non-Reactive Non-Reactive Reactive Control (test code = Reactive Reactive Control) Weak Reactive Control (test Weak Reactive code = Weak Reactive Control) Non-Reactive Control (test code Non-Reactive = Non-Reactive Control) Lot # (test code = Lot #) [id number] N Expiration Dt (test code = 12-25-2020 N Expiration Dt) Novel Coronavirus SARS-CoV-2, [id number] 16:39:36 Test Item Value Reference Range Interpretation Comments SARS-CoV-2 PCR NEGATIVE Negative Positive resu lts are (test code = indicative of a ctive SARS-CoV-2 PCR) infection wi th SARS-CoV-2; clinical correl ation with patient history and other diagnostic info rmation is necessary to de termine patient infecti on status.Presumpt yu positive result s -INTERPRET WITH CAUTION: Resul t may not reflect if maria isabel ent is actually positi ve. Patient should be treat ed based on clinical suspic ions. Negative result s do not preclude SARS-C oV-2 infection and s hould not be used as the sole basis for treatment o r other patient managem ent decisions. Nega tive results must be combined with clinical observations, p atient history, and epidemiological information.The Xpert Xpress SARS-CoV -2 test is only for use un carmella the Food and Drug Administration s Emergency Use Authorization." Urine [id number] 20:49:06 Test Item Value Reference Range Interpretation Comments Amphetamine Screen Ur Negative Negative The sp ecimen is (test code = presumptive pos itive Amphetamine Screen Ur) if th e analyte concentration i s equal to or greater t ashley 1000 ng/ml.If confirmation of positive result is desired, please order Amphetamine Confirmation, U rine within 7 days. Barbiturate Screen Ur Negative Negative The sp ecimen is (test code = presumptive pos itive Barbiturate Screen Ur) if th e analyte concentration i s equal to or greater t ashley 200 ng/ml.If confir mation of positive res ult is desired, please order Barbiturate Confirmation, U rine within 7 days. Benzodiazepines Ur Negative Negative The speci men is (test code = presumptive pos itive Benzodiazepines Ur) if the a nalyte concentration i s equal to or greater t ashley 200 ng/ml.If confir mation of positive res ult is desired, please order Benzodiazephine Confirmation, U rine within 7 days. Cocaine Screen Ur (test Negative Negative The specimen is code = Cocaine Screen presum ptive positive Ur) if the analyte concentration i s equal to or greater t ashley 300 ng/ml.If confir mation of positive res ult is desired, please order Cocaine Metabol ite Confirmation, U rine within 7 days. Opiate Screen Ur (test Negative Negative The s pecimen is code = Opiate Screen presump tive positive Ur) if the analyte concentration i s equal to or greater t ashley 2000 ng/ml.If confirmation of positive result is desired, please order Opiate Confirm ation, Urine within 7 days. U PCP Scrn (test code = Negative Negative The specimen is U PCP Scrn) presumptive pos itive if the analyte concentration i s equal to or greater t ashley 25 ng/ml.If confir mation of positive res ult is desired, please order Phencyclidine Confirmation, U rine within 7 days. Cannabinoid Screen Ur Positive Negative A The sp ecimen is (test code = presumptive pos itive Cannabinoid Screen Ur) if th e analyte concentration i s equal to or greater t ashley 50 ng/ml.If confir mation of positive res ult is desired, please order Cannabinoid (TH C) Confirmation, U rine within 7 days. U Methadone Scr (test Negative Negative The sp ecimen is code = U Methadone Scr) pres umptive positive if the analyte concentration i s equal to or greater t ashley 300 ng/ml.If confir mation of positive res ult is desired, please order Methadone Confirmation, U rine within 7 days. U Propoxyphene (test Negative Negative The spe cimen is code = U Propoxyphene) presu mptive positive if the analyte concentration i s equal to or greater t ashley 300 ng/ml.If confir mation of positive res ult is desired, please order Propoxyphene Confirmation wi thin 7 days. Comprehensive Metabolic [id number] 19:57:51 Test Item Value Reference Range Interpretation Comments Sodium Level (test code = Sodium 142.0 mmol/L 136.0-145.0 Level) Potassium Level (test code = 3.60 mmol/L 3.50-5.10 Potassium Level) Chloride Level (test code = 105.0 mmol/L 98.0-107.0 Chloride Level) CO2 (test code = CO2) 27 mmol/L 20-31 Anion Gap (test code = Anion 9.8 mmol/L 5.0-15.0 Gap) BUN (test code = BUN) 15 mg/dL 9-23 Creatinine Level (test code = 0.62 mg/dL 0.55-1.02 Creatinine Level) BUN/Creat Ratio (test code = 24.2 ratio 10.0-20.0 H BUN/Creat Ratio) Glucose Level (test code = 95 mg/dL 74-106 Glucose Level) Calcium Level (test code = 9.4 mg/dL 8.3-10.6 Calcium Level) Alk Phos (test code = Alk Phos) 76 U/L 46-116 Bilirubin Total (test code = 0.7 mg/dL 0.2-1.1 Bilirubin Total) Albumin Level (test code = 4.9 g/dL 3.2-4.8 H Albumin Level) Protein Total (test code = 7.4 g/dL 5.7-8.2 Protein Total) ALT (test code = ALT) 15 U/L 10-49 AST (test code = AST) 24 U/L <=34 Globulin (test code = Globulin) 2.5 g/dL 2.3-3.5 A/G Ratio (test code = A/G 2.0 g/dL 0.8-2.0 Ratio) Hemolysis (test code = 0 g/dL 1-2 Hemolysis) Icterus (test code = Icterus) 0 g/dL 1-2 Lipemia (test code = Lipemia) 0 g/dL 1-2 Comprehensive Metabolic [id number] 19:57:51 Test Item Value Reference Range Interpretation Comments Sodium Level (test 142.0 mmol/L 136.0-145.0 code = Sodium Level) Potassium Level 3.60 mmol/L 3.50-5.10 (test code = Potassium Level) Chloride Level (test 105.0 mmol/L 98.0-107.0 code = Chloride Level) CO2 (test code = 27 mmol/L 20-31 CO2) Anion Gap (test code 9.8 mmol/L 5.0-15.0 = Anion Gap) BUN (test code = 15 mg/dL 9-23 BUN) Creatinine Level 0.62 mg/dL 0.55-1.02 (test code = Creatinine Level) BUN/Creat Ratio 24.2 ratio 10.0-20.0 H (test code = BUN/Creat Ratio) Glucose Level (test 95 mg/dL 74-106 code = Glucose Level) Calcium Level (test 9.4 mg/dL 8.3-10.6 code = Calcium Level) Alk Phos (test code 76 U/L 46-116 = Alk Phos) Bilirubin Total 0.7 mg/dL 0.2-1.1 (test code = Bilirubin Total) Albumin Level (test 4.9 g/dL 3.2-4.8 H code = Albumin Level) Protein Total (test 7.4 g/dL 5.7-8.2 code = Protein Total) ALT (test code = 15 U/L 10-49 ALT) AST (test code = 24 U/L <=34 AST) Globulin (test code 2.5 g/dL 2.3-3.5 = Globulin) A/G Ratio (test code 2.0 g/dL 0.8-2.0 = A/G Ratio) eGFR AA (test code = >60 >=60 eGFR (e stimated eGFR AA) mL/min/1.73 m2 Glomerular Filtration Rate ) is an estimated va lue, calculated from the patient's serum creatinine usin g the MDRD equation. It is NOT the patient 's actual GFR. The eGFR provides a more clinically usef ul measure of kidn ey disease than se rum creatinine alone.This calculation noni es sex and race in to account, if the information is provided. If th e race is not provided, and t he patient is -Ankita n, multiply by 1.2 12. If sex is not provided, and t he patient is fema le, multiply by 0.7 42. Results for pat ients <18 years of ag e have not been validated by th e MDRD study and should be interpreted wit h caution. eGFR R esult Interpretation: eGFR > or = 60 is in the Normal RangeeGF R < 60 may mean kid francisco javier diseaseeGFR < 1 5 may mean kidney failure Rang es recommended by the National Kidney Foundation, http://nkdep.ni h.gov Hemolysis (test code 0 g/dL 1-2 = Hemolysis) Icterus (test code = 0 g/dL 1-2 Icterus) Lipemia (test code = 0 g/dL 1-2 Lipemia) Alcohol [id number] 19:57:51 Test Item Value Reference Range Interpretation Comments Ethanol Level <3.0 mg/dL N The pharmacolo gical (test code = response to blo od alcohol Ethanol Level) levels may va ry from individual to i ndividual. The fatal carlos ntration has been report ed to be >400 mg/dl. Comprehensive Metabolic [id number] 19:57:51 Test Item Value Reference Range Interpretation Comments Sodium Level (test 142.0 mmol/L 136.0-145.0 code = Sodium Level) Potassium Level 3.60 mmol/L 3.50-5.10 (test code = Potassium Level) Chloride Level (test 105.0 mmol/L 98.0-107.0 code = Chloride Level) CO2 (test code = 27 mmol/L 20-31 CO2) Anion Gap (test code 9.8 mmol/L 5.0-15.0 = Anion Gap) BUN (test code = 15 mg/dL 9-23 BUN) Creatinine Level 0.62 mg/dL 0.55-1.02 (test code = Creatinine Level) BUN/Creat Ratio 24.2 ratio 10.0-20.0 H (test code = BUN/Creat Ratio) Glucose Level (test 95 mg/dL 74-106 code = Glucose Level) Calcium Level (test 9.4 mg/dL 8.3-10.6 code = Calcium Level) Alk Phos (test code 76 U/L 46-116 = Alk Phos) Bilirubin Total 0.7 mg/dL 0.2-1.1 (test code = Bilirubin Total) Albumin Level (test 4.9 g/dL 3.2-4.8 H code = Albumin Level) Protein Total (test 7.4 g/dL 5.7-8.2 code = Protein Total) ALT (test code = 15 U/L 10-49 ALT) AST (test code = 24 U/L <=34 AST) Globulin (test code 2.5 g/dL 2.3-3.5 = Globulin) A/G Ratio (test code 2.0 g/dL 0.8-2.0 = A/G Ratio) eGFR AA (test code = >60 >=60 eGFR (e stimated eGFR AA) mL/min/1.73 m2 Glomerular Filtration Rate ) is an estimated va lue, calculated from the patient's serum creatinine usin g the MDRD equation. It is NOT the patient 's actual GFR. The eGFR provides a more clinically usef ul measure of kidn ey disease than se rum creatinine alone.This calculation noni es sex and race in to account, if the information is provided. If th e race is not provided, and t he patient is -Ankita n, multiply by 1.2 12. If sex is not provided, and t he patient is fema le, multiply by 0.7 42. Results for pat ients <18 years of ag e have not been validated by th e MDRD study and should be interpreted wit h caution. eGFR R esult Interpretation: eGFR > or = 60 is in the Normal RangeeGF R < 60 may mean kid francisco javier diseaseeGFR < 1 5 may mean kidney failure Rang es recommended by the National Kidney Foundation, http://nkdep.ni h.gov eGFR Non-AA (test >60.00 >=60.00 eGFR (sahara mated code = eGFR Non-AA) mL/min/1.73 m2 Glomer ular Filtration Rate ) is an estimated va lue, calculated from the patient's serum creatinine usin g the MDRD equation. It is NOT the patient 's actual GFR. The eGFR provides a more clinically usef ul measure of kidn ey disease than se rum creatinine alone.This calculation noni es sex and race in to account, if the information is provided. If e race is not provided, and t he patient is -Ankita n, multiply by 1.2 12. If sex is not provided, and t he patient is fema le, multiply by 0.7 42. Results for pat ients <18 years of ag e have not been validated by th e MDRD study and should be interpreted wit h caution. eGFR R esult Interpretation: eGFR > or = 60 is in the Normal RangeeGF R < 60 may mean kid francisco javier diseaseeGFR < 1 5 may mean kidney failure Rang es recommended by the National Kidney Foundation, http://nkdep.ni h.gov Hemolysis (test code 0 g/dL 1-2 = Hemolysis) Icterus (test code = 0 g/dL 1-2 Icterus) Lipemia (test code = 0 g/dL 1-2 Lipemia) IG [id number] 19:42:51 Test Item Value Reference Range Interpretation Comments IG (test code = IG) 0.2 % 0.0-5.0 IG Abs (test code = IG Abs) 0 x10 N Complete Blood Count with [id number] 19:42:50 Test Item Value Reference Range Interpretation Comments WBC (test code = WBC) 9.2 x10 4.4-10.5 RBC (test code = RBC) 4.48 x10 3.75-5.20 Hgb (test code = Hgb) 15.5 g/dL 12.2-14.8 H MCV (test code = MCV) 102.20 fL 80.00-100.00 H Hct (test code = Hct) 45.8 % 36.5-44.4 H MCHC (test code = 33.80 g/dL 32.00-37.50 MCHC) RDW CV (test code = 12.8 % 11.5-14.5 RDW CV) MCH (test code = MCH) 34.6 pg 27.0-32.5 H Platelets (test code = 213.0 x10 140.0-440.0 Platelets) MPV (test code = MPV) 10.8 fL N Slide Review (test Auto Auto Result cr eated by code = Slide Review) GL_SJM_ SLIDE_REV_AUTO nRBC (test code = 0 N nRBC) NRBC Abs (test code = 0.00 x10 N NRBC Abs) IPF (test code = IPF) 0 % N Automated [id number] 19:42:50 Test Item Value Reference Range Interpretation Comments Neutro Auto (test code = Neutro 80.5 % 36.0-70.0 H Auto) Lymph Auto (test code = Lymph Auto) 13.5 % 12.0-44.0 [place] Auto (test code = [place] Auto) 5.7 % 0.0-11.0 Eos, Auto (test code = Eos, Auto) 0.0 % 0.0-7.0 Basophil Auto (test code = Basophil 0.1 % 0.0-2.0 Auto) Neutro Absolute (test code = Neutro 7.4 x10 1.6-7.4 Absolute) Lymph Absolute (test code = Lymph 1.25 x10 .50-4.60 Absolute) [place] Absolute (test code = [place] .53 x10 .00-1.20 Absolute) Eos Absolute (test code = Eos 0.00 x10 0.00-0.74 Absolute) Baso Absolute (test code = Baso 0.01 x10 0.00-0.21 Absolute) RAPID DRUG SCREEN, [id number] 12:50:00 Test Item Value Reference Range Interpretation Comments BARBITURATE URINE (BEAKER) (test Negative Negative code = 725) BENZODIAZEPINE SCREEN URINE (BEAKER) Negative Negative (test code = 726) COCAINE (METAB.) SCREEN (BEAKER) Negative Negative (test code = 1164) METHADONE SCREEN (BEAKER) (test code Negative Negative = 1436) OPIATE SCREEN URINE (BEAKER) (test Negative Negative code = 734) CANNABINOID SCREEN URINE (BEAKER) Positive Negative A (test code = 727) AMPH/METHAMPH SCREEN (BEAKER) (test Negative Negative code = 1438) PHENCYCLIDINE SCREEN URINE (BEAKER) Negative Negative (test code = 608) OXYCODONE SCREEN URINE (BEAKER) Negative Negative (test code = 2761) DRUG CUTOFF CONC.Cocaine 300 ng/mL Cannabinoid 50 ng/mL Benzodiazepine 200 ng/mLBarbiturate 200 ng/mLPhencyclidine 25 ng/mLOpiate 300 ng/mLMethadone 300 ng/mLAmphetamine/ 1000 ng/mL MethamphetamineOxycodone 300 ng/mLThis assay provides an unconfirmed qualitative test result for the clinical management of patients in emergency situations. Chain of custody not maintained. Some pzax-ivs-wbtqhiq medications, as well as adulterants, may cause inaccurate results. Clinical correlation should be applied. A more comprehensive drug screen or confirmation of a detected drug may be performed upon request. RAD, CHEST, 1 VIEW, NON [id number] 12:49:00Reason for exam:->chest painIs the patient ?->UnknownShould this be performed at the [facility]?->YesFINAL REPORT Chest one view AP 05/16/2017 12:49 PM CLINICAL HISTORY: chest pain COMPARISON: None available FINDINGS: The lungs are clear. Cardiomediastinal contours are within normal limits. The central pulmonary vasculature is not engorged. IMPRESSION: Unremarkable frontal chest radiograph. Signed: Lebron Downey Verified Date/Time: 05/16/2017 12:49:42 Reading Location: [address] Consult Reading Room CREATINE KINASE (CK), TOTAL AND [id number] 12:27:00 Test Item Value Reference Range Interpretation Comments CREATINE KINASE TOTAL (BEAKER) 49 U/L 29-200 (test code = 380) CREATINE KINASE-MB (BEAKER) (test 0.8 ng/mL 0.0-6.6 code = 750) CREATINE KINASE-MB INDEX (BEAKER) 1.6 % (test code = 395) CK-MB Reference Range:<6.7 Normal6.7-10.0 Borderline>10.0 AbnormalSALICYLATE [id number] 12:25:00 Test Item Value Reference Range Interpretation Comments SALICYLATE LEVEL (BEAKER) (test code < mg/dL 15.0-30.0 L = 764) Therapeutic Range: 15.0-30.0 mg/dLToxic: >30.0 mg/dL Lethal: >70.0 mg/dLACETAMINOPHEN [id number] 12:25:00 Test Item Value Reference Range Interpretation Comments ACETAMINOPHEN LEVEL (BEAKER) (test < ug/mL 10.0-30.0 L code = 344) Therapeutic Range: 10.0-30.0 g/mLToxic Levels: >200.0 g/mLURINALYSIS W/ [id number] 12:24:00 Test Item Value Reference Range Interpretation Comments COLOR (BEAKER) (test code Yellow = 470) CLARITY (BEAKER) (test Hazy code = 469) SPECIFIC GRAVITY UA 1.018 1.001-1.035 (BEAKER) (test code = 468) PH UA (BEAKER) (test code 7.0 5.0-8.0 = 467) PROTEIN UA (BEAKER) (test 10 mg/dL Negative A code = 464) GLUCOSE UA (BEAKER) (test Negative Negative code = 365) KETONES UA (BEAKER) (test Negative Negative code = 371) BILIRUBIN UA (BEAKER) Negative Negative (test code = 462) BLOOD UA (BEAKER) (test Negative Negative code = 461) NITRITE UA (BEAKER) (test Negative Negative code = 465) LEUKOCYTE ESTERASE UA Negative Negative (BEAKER) (test code = 466) UROBILINOGEN UA (BEAKER) 0.2 mg/dL 0.2-1.0 (test code = 463) RBC UA (BEAKER) (test code 0 /HPF = 519) WBC UA (BEAKER) (test code 1 /HPF = 520) MUCUS (BEAKER) (test code Many = 1574) SQUAMOUS EPITHELIAL 2 /HPF (BEAKER) (test code = 516) AMORPHOUS CRYSTALS Few (BEAKER) (test code = 1584) SOURCE(BEAKER) (test code Urine, Clean Catch = 2795) HEPATIC FUNCTION [id number] 12:20:00 Test Item Value Reference Range Interpretation Comments TOTAL PROTEIN (BEAKER) (test code = 7.0 gm/dL 6.0-8.3 770) ALBUMIN (BEAKER) (test code = 1145) 4.2 g/dL 3.5-5.0 BILIRUBIN TOTAL (BEAKER) (test code 0.6 mg/dL 0.2-1.2 = 377) BILIRUBIN DIRECT (BEAKER) (test 0.2 mg/dL 0.1-0.5 code = 706) ALKALINE PHOSPHATASE (BEAKER) (test 56 U/L 40-150 code = 346) AST (SGOT) (BEAKER) (test code = 13 U/L 5-34 353) ALT (SGPT) (BEAKER) (test code = 9 U/L 6-55 347) BASIC METABOLIC [id number] 12:20:00 Test Item Value Reference Range Interpretation Comments SODIUM (BEAKER) 139 meq/L 136-145 (test code = 381) POTASSIUM (BEAKER) 3.5 meq/L 3.5-5.1 (test code = 379) CHLORIDE (BEAKER) 107 meq/L 98-107 (test code = 382) CO2 (BEAKER) (test 23 meq/L 22-29 code = 355) BLOOD UREA NITROGEN 11 mg/dL 7-21 (BEAKER) (test code = 354) CREATININE (BEAKER) 0.59 mg/dL 0.57-1.25 (test code = 358) GLUCOSE RANDOM 108 mg/dL 70-105 H (BEAKER) (test code = 652) CALCIUM (BEAKER) 9.3 mg/dL 8.4-10.2 (test code = 697) EGFR (BEAKER) (test 110 INSUFFIC IENT CLINICAL code = 1092) mL/min/1.73 sq DATA TO CALCU LATE m ESTIMATED GFR. [id number] 12:18:00 Test Item Value Reference Range Interpretation Comments ETHANOL (BEAKER) (test code = 400) < mg/dL <=10 CBC W/PLT COUNT & AUTO [id number] 11:50:00 Test Item Value Reference Range Interpretation Comments WHITE BLOOD CELL COUNT (BEAKER) 9.6 K/ L 3.5-10.5 (test code = 775) RED BLOOD CELL COUNT (BEAKER) 4.67 M/ L 3.93-5.22 (test code = 761) HEMOGLOBIN (BEAKER) (test code = 15.4 GM/DL 11.2-15.7 410) HEMATOCRIT (BEAKER) (test code = 45.9 % 34.1-44.9 H 411) MEAN CORPUSCULAR VOLUME (BEAKER) 98.3 fL 79.4-94.8 H (test code = 753) MEAN CORPUSCULAR HEMOGLOBIN 33.0 pg 25.6-32.2 H (BEAKER) (test code = 751) MEAN CORPUSCULAR HEMOGLOBIN CONC 33.6 GM/DL 32.2-35.5 (BEAKER) (test code = 752) RED CELL DISTRIBUTION WIDTH 12.8 % 11.7-14.4 (BEAKER) (test code = 412) PLATELET COUNT (BEAKER) (test 233 K/CU MM 150-450 code = 756) MEAN PLATELET VOLUME (BEAKER) 10.5 fL 9.4-12.3 (test code = 754) NUCLEATED RED BLOOD CELLS 0 /100 WBC 0-0 (BEAKER) (test code = 413) NEUTROPHILS RELATIVE PERCENT 71 % (BEAKER) (test code = 429) LYMPHOCYTES RELATIVE PERCENT 23 % (BEAKER) (test code = 430) MONOCYTES RELATIVE PERCENT 6 % (BEAKER) (test code = 431) EOSINOPHILS RELATIVE PERCENT 0 % (BEAKER) (test code = 432) BASOPHILS RELATIVE PERCENT 0 % (BEAKER) (test code = 437) NEUTROPHILS ABSOLUTE COUNT 6.77 K/ L 1.56-6.13 H (BEAKER) (test code = 670) LYMPHOCYTES ABSOLUTE COUNT 2.16 K/ L 1.18-3.74 (BEAKER) (test code = 414) MONOCYTES ABSOLUTE COUNT (BEAKER) 0.57 K/ L 0.24-0.36 H (test code = 415) EOSINOPHILS ABSOLUTE COUNT 0.03 K/ L 0.04-0.36 L (BEAKER) (test code = 416) BASOPHILS ABSOLUTE COUNT (BEAKER) 0.02 K/ L 0.01-0.08 (test code = 417) IMMATURE GRANULOCYTES-RELATIVE 0 % 0-1 PERCENT (BEAKER) (test code = 2801)
--- NOTE | 2020-02-11 22:59 | ER ---
Nurse's Notes [facility] Name: Ada Downs Age: 49 yrs Sex: Female : 1970 Arrival Date: 02/11/2020 Time: 20:47 Bed 20 Private MD: Diagnosis: Encounter for issue of repeat prescription Presentation: 02/10 21:38 Chief complaint: Patient states[facility] Needs ll1 prescriptions until she can see her psych doctor. Coronavirus screen: Client denies travel out of the [place] in the last 14 days. At this time, the client does not indicate any symptoms associated with coronavirus-19. Ebola Screen: Patient denies travel to an Ebola-affected area in the 21 days before illness onset. Initial Sepsis Screen: Does the patient meet any 2 criteria? No. Patient's initial sepsis screen is negative. Does the patient have a suspected source of infection? No. Patient's initial sepsis screen is negative. Risk Assessment: Do you want to hurt yourself or someone else? Patient reports no desire to harm self or others. Onset of symptoms was February 10, 2020. 21:38 Method Of Arrival: Ambulatory ll1 21:38 Acuity: JEANNIE 4 ll1 Triage Assessment: 23:15 General: Appears in no apparent distress. Behavior is calm, cooperative. 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 - Social history:: Smoking status: Patient reports the use of cigarette tobacco products, smokes one pack cigarettes per day. Screenin:10 Abuse screen: Denies threats or abuse. Denies injuries from another. Nutritional screening: No deficits noted. Tuberculosis screening: No symptoms or risk factors identified. Fall Risk None identified. Assessment: 23:10 General: Appears in no apparent distress. Behavior is calm, cooperative. Pain: Denies pain. Neuro: Level of Consciousness is awake, alert, obeys commands, Oriented to person, place, time, situation. Cardiovascular: Capillary refill < 3 seconds. Respiratory: Airway is patent Respiratory effort is even, unlabored, Respiratory pattern is regular, symmetrical. GI: Abdomen is flat, non-distended. : No signs and/or symptoms were reported regarding the genitourinary system. EENT: No signs and/or symptoms were reported regarding the EENT system. Derm: Skin is intact, is healthy with good turgor, Skin is pink, warm \T\ dry. normal. Musculoskeletal: Circulation, motion, and sensation intact. Vital Signs: 21:38 BP 125 / 85; Pulse 85; Resp 18; Temp 97.3; Pulse Ox 98% ; Weight 74.84 kg; Height 5 ft. ll1 3 in. (160.02 cm); Pain 0/10; 23:15 BP 114 / 70; Pulse 78; Resp 18; Pulse Ox 99% on R/A; wh 21:38 Body Mass Index 29.23 (74.84 kg, 160.02 cm) 1 ED Course: 20:47 Patient arrived in ED. cf2 21:40 Triage completed. ll1 21:41 Arm band placed on. ll1 22:54 Connor Millan NP is PHCP. pm1 22:54 Bill Jimenez MD is Attending Physician. pm1 23:15 Rossy Thapa is Primary Nurse. 23:15 Patient has correct armband on for positive identification. Bed in low position. Call light in reach. Side rails up X 1. Pulse ox on. NIBP on. 23:15 No provider procedures requiring assistance completed. Patient did not have IV access during this emergency room visit. Administered Medications: No medications were administered Outcome: 22:59 Discharge ordered by . pm1 23:15 Patient left the ED. 23:15 Discharged to home ambulatory, with family. 23:15 Condition: stable 23:15 Discharge instructions given to patient, Instructed on discharge instructions, follow up and referral plans. medication usage, POC Demonstrated understanding of instructions, follow-up care, medications, POC Prescriptions given X 2. Signatures: Connor Millan NP LEGAL [employer]NS[employer] pm1 Rossy Thapa Leslie Mayers cf2 Alvin Lee RN RN 1
--- NOTE | 2020-02-11 22:59 | EDPHYS ---
Physician Documentation [facility] Name: Ada Downs Age: 49 yrs Sex: Female : 1970 Arrival Date: 02/11/2020 Time: 20:47 Bed 20 Private MD: ED Physician Bill Jimenez HPI: 02/10 22:57 This 49 yrs old Female presents to ER via Ambulatory with complaints of pm1 Medication Refill. 22:57 The patient presents to the emergency department requesting refill(s) for: Zoloft, pm1 Geodon. The patient chronically suffers from bipolar disorder and schizophrenia. Patient requesting prescription refill until she sees her psychiatrist. 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 - Social history:: Smoking status: Patient reports the use of cigarette tobacco products, smokes one pack cigarettes per day. ROS: 22:57 Constitutional: Negative for fever, chills, and weight loss, Cardiovascular: Negative pm1 for chest pain, palpitations, and edema, Respiratory: Negative for shortness of breath, cough, wheezing, and pleuritic chest pain, Abdomen/GI: Negative for abdominal pain, nausea, vomiting, diarrhea, and constipation, Skin: Negative for injury, rash, and discoloration, Neuro: Negative for headache, weakness, numbness, tingling, and seizure. Exam: 22:57 Constitutional: This is a well developed, well nourished patient who is awake, alert, pm1 and in no acute distress. Head/Face: Normocephalic, atraumatic. 22:57 Skin: Warm, dry with normal turgor. Normal color with no rashes, no lesions, and no evidence of cellulitis. MS/ Extremity: Pulses equal, no cyanosis. Neurovascular intact. Full, normal range of motion. 22:57 Cardiovascular: Exam negative for acute changes, Rate: normal, Rhythm: regular, Pulses: no pulse deficits are appreciated. 22:57 Respiratory: Exam negative for acute changes, respiratory distress, shortness of breath. 22:57 Neuro: Exam negative for acute changes, Orientation: is normal, Mentation: is normal, Motor: is normal, moves all fours, Gait: is steady, at a normal pace, without difficulty. Vital Signs: 21:38 BP 125 / 85; Pulse 85; Resp 18; Temp 97.3; Pulse Ox 98% ; Weight 74.84 kg; Height 5 ft. ll1 3 in. (160.02 cm); Pain 0/10; 23:15 BP 114 / 70; Pulse 78; Resp 18; Pulse Ox 99% on R/A; wh 21:38 Body Mass Index 29.23 (74.84 kg, 160.02 cm) ll1 MDM: 22:56 Patient medically screened. [facility] 22:57 Data reviewed: vital signs. Data interpreted: Pulse oximetry: on room air is 98 %. pm1 Interpretation: normal. Counseling: I had a detailed discussion with the patient and/or guardian regarding: the historical points, exam findings, and any diagnostic results supporting the discharge/admit diagnosis, the need for outpatient follow up. Administered Medications: No medications were administered Disposition: 02/11 08:31 Co-signature as Attending Physician, Bill Jimenez MD I agree with the assessment and [facility] plan of care. Disposition: 02/11/20 22:59 Discharged to Home. Impression: Encounter for issue of repeat prescription. - Condition is Stable. - Discharge Instructions: Medicine Refill at the Emergency Department. - Prescriptions for Geodon 60 mg Oral capsule - take 1 capsule by ORAL route 2 times per day . with food; 30 capsule. Zoloft 100 mg Oral tablet - take 1 tablet by ORAL route once daily; 15 tablet. - Medication Reconciliation Form, Thank You Letter, Antibiotic Education, Prescription Opioid Use form. - Follow up: Emergency Department; When: As needed; Reason: Worsening of condition. Follow up: Private Physician; When: 2 - 3 days; Reason: Recheck today's complaints, Continuance of care, Re-evaluation by your physician. - Problem is new. - Symptoms have improved. Signatures: Bill Jimenez MD MD cha Marinas, Patrick, CORPORATE TAX PREPARER CORPORATE TAX PREPARER pm1 Rossy Thapa Lynsay, RN RN ll1 Corrections: (The following items were deleted from the chart) 02/10 23:15 22:59 02/11/2020 22:59 Discharged to Home. Impression: Encounter for issue of repeat wh prescription. Condition is Stable. Forms are Medication Reconciliation Form, Thank You Letter, Antibiotic Education, Prescription Opioid Use. Follow up: Emergency Department; When: As needed; Reason: Worsening of condition. Follow up: Private Physician; When: 2 - 3 days; Reason: Recheck today's complaints, Continuance of care, Re-evaluation by your physician. Problem is new. Symptoms have improved. pm1
[2020-02-12 07:52] VITALS: BP 125/85; TEMP 97.3; O2SAT 98
== END 2020-02-11 23:15 | disposition home or self-care (01) ==
LOC: ER 20:46
DX: Z76.0 Encounter for issue of repeat prescription (principal)
CPT/HCPCS: 99283

== ENCOUNTER 2020-03-09 09:57 | Emergency (ER) | payer SELFPAY ==
--- OUTSIDE RECORDS SUMMARY | 2020-03-09 09:59 | XMS REPORT | Clinical Summary ---
:1970 Author Organization [facility] Address [address] [place] [address] Care Team Providers Name Role Phone Brendon [...] VACCINE (#1) 2019 Results Not on fileafter 03/09/2019
--- OUTSIDE RECORDS SUMMARY | 2020-03-09 10:00 | XMS REPORT | Continuity of Care Document ---
:1970 Author Organization [facility] t Address [address] [place] [address] Care Team Providers Name Role Phone Sharpless [...] Allergie 04-20 Mainlan s 00:00: d 00 [facility] Social History Social Habit Start Date Stop Date Quantity Comments Source Sex Assigned At [facility] Alcohol intake 2017-05-16 2017-05-16 Current [facility] es - 00:00:00 00:00:00 non-drinker of Medical Ce nter alcohol (finding) Smoking Status Start Date Stop Date Source Current every day smoker 2017-05-16 00:00:00 [facility] Medications Ordered Filled Start Stop Current Ordering Indication Dosage Frequency Signature Comments Components Source Medication Medication Date Date Medication? Clinician (SIG) Name Name traMADol Yes 50mg Take [address] [facility] [address] (ULTRAM) 50 2-19 tablet (50 Jennifer [...] Test 00:00:00 (procedure) [code = Medical Center 77702175] Future Scheduled 1991-06-[address] [facility] - Test 00:00:00 malignant neoplasm of Medica l Center cervix (procedure) [code = 214230837] Future Scheduled [address] [facility] - Test 00:00:00 0-64 YRS (1 of 1 - Medical C enter PPSV23) [code = PNEUMOCOCCAL VACCINE 0-64 YRS (1 of 1 - PPSV23)] Encounters Start End Encounter Admission Attending Care Care Encounter Source Date/Time Date/Time Type Type Clinicians Facility Department ID 2019-11-08 2019-11-09 Emergency 1 Pedro Garcia [facility] DEEPTI [id number] [facility] 20:50:00 03:40:00 Pedro Garcia 2019-11-08 2019-11-08 Emergency 1 Pedro Garcia [facility] DEEPTI [id number] [facility] 20:50:00 20:50:00 Jose Pedro -20192019-10-15 2019-10-30 Inpatient 1 Eduard Allen [facility] PSY [id number] [facility] 18:45:00 13:20:00 Eduard Allen Results Test Description Test Time Test Comments [...] code = IPF) 0 % N Automated [id number] 23:33:44 Test Item Value Reference Range Interpretation Comments Neutro Auto (test code = Neutro 69.3 % 36.0-70.0 Auto) Lymph Auto (test code = Lymph Auto) 22.3 % 12.0-44.0 Baxter Auto (test code = Baxter Auto) 6.8 % 0.0-11.0 Eos, Auto (test code = Eos, Auto) 1.1 % 0.0-7.0 Basophil Auto (test code = Basophil 0.2 % 0.0-2.0 Auto) Neutro Absolute (test code = Neutro 6.8 x10 1.6-7.4 Absolute) Lymph Absolute (test code = Lymph 2.19 x10 .50-4.60 Absolute) Baxter Absolute (test code = Baxter .67 x10 .00-1.20 Absolute) Eos Absolute (test code = Eos 0.11 x10 0.00-0.74 Absolute) Baso Absolute (test code = Baso 0.02 x10 0.00-0.21 Absolute) IG [id number] 23:33:44 Test Item Value Reference Range Interpretation Comments IG (test code = IG) 0.3 % 0.0-5.0 IG Abs (test code = IG Abs) 0 x10 N Comprehensive Metabolic [id number] 22:49:11 Test Item Value Reference Range Interpretation [...] Lipemia) 0 g/dL 1-2 H Comprehensive Metabolic [id number] 22:49:11 Test Item Value Reference Range Interpretation [...] = 0 g/dL 1-2 H Lipemia) Acetaminophen [id number] 22:49:11 Test Item Value Reference Range Interpretation Comments Acetaminophen Level <0.2 mg/dL N Therapeu tic range (test code = 1.0-2.0 mg/dlTo xic Acetaminophen Level) concent ration 4 hours post ingestion - >15.0 mg/dlToxi c concentration 1 2 hours post emiliano stion - >4 mg/dl Alcohol [id number] 22:49:11 Test Item Value Reference Range Interpretation Comments Ethanol Level 7.3 mg/dL N The pharmacolo gical (test code = response to blo od alcohol Ethanol Level) levels may va ry from individual to i ndividual. The fatal carlos ntration has been report ed to be >400 mg/dl. Salicylate [id number] 22:49:11 Test Item Value Reference Range Interpretation Comments Salicylate Level (test <3.0 mg/dL N Salic ylate is toxic code = Salicylate above 30 m g/dl for Level) adults. Comprehensive Metabolic [id number] 22:49:11 Test Item Value Reference Range Interpretation [...] 0 g/dL 1-2 H Lipemia) HCG Qualitative [id number] 22:47:33 Test Item Value Reference Range Interpretation [...] 72 hours. Lot # (test code = [id number] N Lot #) Expiration Dt (test 11/25/2020 N code = Expiration Dt) Neg Control (test Negative code = Neg Control) Pos Control (test Positive code = Pos Control) Internal QC (test Acceptable code = Internal QC) Urinalysis [id number] 22:47:33 Test Item Value Reference Range Interpretation Comments UA WBC (test code = UA WBC) 0-5 0-5 UA RBC (test code = UA RBC) 0-5 0-5 UA Bacteria (test code = UA None Seen Bacteria) UA Squam Epithelial (test code = UA 0-5 Squam Epithelial) UA Amorph Mary Ann (test code = UA Moderate A Amorph Mary Ann) Urine [id number] 22:47:33 Test Item Value Reference Range Interpretation [...] thin 7 days. Urinalysis with Culture, if [id number] 22:42:29 Test Item Value Reference Range Interpretation [...] Indicated Not Indicated A Ind?) HCG Qualitative [id number] 14:19:05 Test Item Value Reference Range Interpretation Comments HCG, Serum Qual (test code = HCG, Negative Negative Serum Qual) Thyroxine Free [id number] 13:02:56 Test Item Value Reference Range Interpretation Comments T4 Free (test code = T4 Free) 1.66 ng/dL 0.89-1.76 Triiodothyronine [id number] 13:02:56 Test Item Value Reference Range Interpretation Comments T3 Free (test code = T3 Free) 2.65 pg/mL 2.30-4.20 Thyroid Stimulating [id number] 09:19:22 Test Item Value Reference Range Interpretation Comments TSH (test code = TSH) 0.341 mcIU/mL 0.550-4.780 L Lipid [id number] 13:21:26 Test Item Value Reference Range Interpretation [...] is LDL/HDL Ratio=L DL Calc/HDL Chol Hemoglobin [id number] 13:15:51 Test Item Value Reference Range Interpretation Comments Hemoglobin A1c (test code 4.7 % 4.0-5.8 Di abetic >=6.5 = Hemoglobin A1c) %Prediabet es 5.7-6.4 %Normal <5.7 % RPR [id number] 12:11:10 Test Item Value Reference Range Interpretation [...] 12-25-2020 N Expiration Dt) Novel Coronavirus SARS-CoV-2, [id number] 16:39:36 Test Item Value Reference Range Interpretation [...] Administration s Emergency Use Authorization." Urine DOA [id number] 20:49:06 Test Item Value Reference Range Interpretation [...] Confirmation wi thin 7 days. Comprehensive Metabolic [id number] 19:57:51 Test Item Value Reference Range Interpretation [...] = Lipemia) 0 g/dL 1-2 Comprehensive Metabolic [id number] 19:57:51 Test Item Value Reference Range Interpretation [...] code = 0 g/dL 1-2 Lipemia) Alcohol [id number] 19:57:51 Test Item Value Reference Range Interpretation Comments Ethanol Level <3.0 mg/dL N The pharmacolo gical (test code = response to blo od alcohol Ethanol Level) levels may va ry from individual to i ndividual. The fatal carlos ntration has been report ed to be >400 mg/dl. Comprehensive Metabolic [id number] 19:57:51 Test Item Value Reference Range Interpretation [...] ag e have not been validated by e MDRD study and should be interpreted [...] code = 0 g/dL 1-2 Lipemia) IG [id number] 19:42:51 Test Item Value Reference Range Interpretation Comments IG (test code = IG) 0.2 % 0.0-5.0 IG Abs (test code = IG Abs) 0 x10 N Complete Blood Count with [id number] 19:42:50 Test Item Value Reference Range Interpretation [...] code = IPF) 0 % N Automated [id number] 19:42:50 Test Item Value Reference Range Interpretation Comments Neutro Auto (test code = Neutro 80.5 % 36.0-70.0 H Auto) Lymph Auto (test code = Lymph Auto) 13.5 % 12.0-44.0 Baxter Auto (test code = Baxter Auto) 5.7 % 0.0-11.0 Eos, Auto (test code = Eos, Auto) 0.0 % 0.0-7.0 Basophil Auto (test code = Basophil 0.1 % 0.0-2.0 Auto) Neutro Absolute (test code = Neutro 7.4 x10 1.6-7.4 Absolute) Lymph Absolute (test code = Lymph 1.25 x10 .50-4.60 Absolute) Baxter Absolute (test code = Baxter .53 x10 .00-1.20 Absolute) Eos Absolute (test code = Eos 0.00 x10 0.00-0.74 Absolute) Baso Absolute (test code = Baso 0.01 x10 0.00-0.21 Absolute) RAPID DRUG SCREEN, [id number] 12:50:00 Test Item Value Reference Range Interpretation [...] situations. Chain of custody not maintained. Some eenq-ezl-ykrdujt medications, as well as adulterants, may cause inaccurate results. Clinical correlation should be applied. A more comprehensive drug screen or confirmation of a detected drug may be performed upon request. RAD, CHEST, 1 VIEW, NON [id number] 12:49:00Reason for exam:->chest painIs the patient ?->UnknownShould this be performed at the [facility]?->YesFINAL REPORT Chest one view AP 05/16/2017 12:49 PM CLINICAL HISTORY: chest pain COMPARISON: None available FINDINGS: The lungs are clear. Cardiomediastinal contours are within normal limits. The central pulmonary vasculature is not engorged. IMPRESSION: Unremarkable frontal chest radiograph. Signed: Lebron Downeyort Verified Date/Time: 05/16/2017 12:49:42 Reading Location: [facility] B1 [id number] Consult Reading Room CREATINE KINASE (CK), TOTAL AND [id number] 12:27:00 Test Item Value Reference Range Interpretation Comments CREATINE KINASE TOTAL (BEAKER) 49 U/L 29-200 (test code = 380) CREATINE KINASE-MB (BEAKER) (test 0.8 ng/mL 0.0-6.6 code = 750) CREATINE KINASE-MB INDEX (BEAKER) 1.6 % (test code = 395) CK-MB Reference Range:<6.7 Normal6.7-10.0 Borderline>10.0 AbnormalSALICYLATE [id number] 12:25:00 Test Item Value Reference Range Interpretation Comments SALICYLATE LEVEL (BEAKER) (test code < mg/dL 15.0-30.0 L = 764) Therapeutic Range: 15.0-30.0 mg/dLToxic: >30.0 mg/dL Lethal: >70.0 mg/dLACETAMINOPHEN [id number] 12:25:00 Test Item Value Reference Range Interpretation Comments ACETAMINOPHEN LEVEL (BEAKER) (test < ug/mL 10.0-30.0 L code = 344) Therapeutic Range: 10.0-30.0 g/mLToxic Levels: >200.0 g/mLURINALYSIS W/ [id number] 12:24:00 Test Item Value Reference Range Interpretation [...] Urine, Clean Catch = 2795) HEPATIC FUNCTION [id number] 12:20:00 Test Item Value Reference Range Interpretation [...] = 9 U/L 6-55 347) BASIC METABOLIC [id number] 12:20:00 Test Item Value Reference Range Interpretation [...] DATA TO CALCU LATE m ESTIMATED GFR. [id number] 12:18:00 Test Item Value Reference Range Interpretation Comments ETHANOL (BEAKER) (test code = 400) < mg/dL <=10 CBC W/PLT COUNT & AUTO [id number] 11:50:00 Test Item Value Reference Range Interpretation [...] % 0-1 PERCENT (BEAKER) (test code = 7901)
[2020-03-09] MEDS ORDERED: predniSONE 20 MG TAB ONE (11:47)
[2020-03-09] MEDS ORDERED: AZITHROMYCIN 250 MG TAB ONE (11:47)
--- NOTE | 2020-03-09 12:29 | EDPHYS ---
Physician Documentation [facility] Name: Ada Downs Age: 49 yrs Sex: Female : 1970 Arrival Date: 03/09/2020 Time: 09:57 Bed 19 Private MD: HILDA Physician Bill Jimenez HPI: 03/09 11:00 This 49 yrs old Female presents to ER via Unassigned with complaints of estefany Cough, Sore Throat, Runny Nose, Congestion. 11:00 The patient or guardian reports airway noise, cough. Onset: The symptoms/episode estefany began/occurred 3 day(s) ago. Severity of symptoms: At their worst the symptoms were mild, moderate, in the emergency department the symptoms are unchanged. Modifying factors: The symptoms are alleviated by nothing, the symptoms are aggravated by nothing. Associated signs and symptoms: Pertinent positives: rhinorrhea, sore throat. The patient has experienced similar episodes in the past, a few times. Historical: - Allergies: 10:38 No Known Allergies; aa5 - Home Meds: 10:38 gabapentin 300 mg Oral cap 1 cap 3 times per day [Active]; Geodon 80 mg Oral cap 1 cap aa5 2 times per day [Active]; Trazodone Oral [Active]; - PMHx: 10:38 Bipolar disorder; kyphoid scoliosis; Schizophrenia; aa5 - PSHx: 10:38 Tubal ligation; aa5 - Immunization history:: Adult Immunizations unknown. - Social history:: Smoking status: Patient reports the use of cigarette tobacco products, smokes one pack cigarettes per day. - Family history:: not pertinent. ROS: 11:00 Constitutional: Negative for fever, chills, and weight loss, Eyes: Negative for injury, estefany pain, redness, and discharge, ENT: Negative for injury, pain, and discharge, Neck: Negative for injury, pain, and swelling, Cardiovascular: Negative for chest pain, palpitations, and edema, Abdomen/GI: Negative for abdominal pain, nausea, vomiting, diarrhea, and constipation, Back: Negative for injury and pain, : Negative for injury, bleeding, discharge, and swelling, MS/Extremity: Negative for injury and deformity, Skin: Negative for injury, rash, and discoloration, Neuro: Negative for headache, weakness, numbness, tingling, and seizure, Psych: Negative for depression, anxiety, suicide ideation, homicidal ideation, and hallucinations, Allergy/Immunology: Negative for hives, rash, and allergies, Endocrine: Negative for neck swelling, polydipsia, polyuria, polyphagia, and marked weight changes, Hematologic/Lymphatic: Negative for swollen nodes, abnormal bleeding, and unusual bruising. 11:00 Respiratory: Positive for cough, shortness of breath, wheezing, expiratory. Exam: 11:00 Constitutional: This is a well developed, well nourished patient who is awake, alert, estefany and in no acute distress. Head/Face: Normocephalic, atraumatic. Eyes: Pupils equal round and reactive to light, extra-ocular motions intact. Lids and lashes normal. Conjunctiva and sclera are non-icteric and not injected. Cornea within normal limits. Periorbital areas with no swelling, redness, or edema. ENT: Nares patent. No nasal discharge, no septal abnormalities noted. Tympanic membranes are normal and external auditory canals are clear. Oropharynx with no redness, swelling, or masses, exudates, or evidence of obstruction, uvula midline. Mucous membranes moist. Neck: Trachea midline, no thyromegaly or masses palpated, and no cervical lymphadenopathy. Supple, full range of motion without nuchal rigidity, or vertebral point tenderness. No Meningismus. Chest/axilla: Normal chest wall appearance and motion. Nontender with no deformity. No lesions are appreciated. Cardiovascular: Regular rate and rhythm with a normal S1 and S2. No gallops, murmurs, or rubs. Normal PMI, no JVD. No pulse deficits. Abdomen/GI: Soft, non-tender, with normal bowel sounds. No distension or tympany. No guarding or rebound. No evidence of tenderness throughout. Back: No spinal tenderness. No costovertebral tenderness. Full range of motion. Skin: Warm, dry with normal turgor. Normal color with no rashes, no lesions, and no evidence of cellulitis. MS/ Extremity: Pulses equal, no cyanosis. Neurovascular intact. Full, normal range of motion. Neuro: Awake and alert, GCS 15, oriented to person, place, time, and situation. Cranial nerves II-XII grossly intact. Motor strength 5/5 in all extremities. Sensory grossly intact. Cerebellar exam normal. Normal gait. Psych: Awake, alert, with orientation to person, place and time. Behavior, mood, and affect are within normal limits. 11:00 Respiratory: the patient does not display signs of respiratory distress, Breath sounds: bronchial sounds, rhonchi, that are mild, wheezing: expiratory is scattered. 11:04 Musculoskeletal/extremity: DVT Exam: No signs of deep vein thrombosis. no pain, no estefany swelling, no tenderness, negative Homans' sign noted on exam, no appreciated bluish discoloration, no erythema, no increased warmth. Vital Signs: 10:38 BP 134 / 79; Pulse 71; Resp 16 S; Temp 98.4(O); Pulse Ox 95% on R/A; Weight 77.11 kg aa5 (R); Height 5 ft. 3 in. (160.02 cm) (R); Pain 6/10; 12:00 BP 123 / 70; Pulse 76; Resp 16; Pulse Ox 98% ; zb 13:00 BP 119 / 71; Pulse 74; Resp 17; Temp 98; Pulse Ox 98% ; bp 10:38 Body Mass Index 30.11 (77.11 kg, 160.02 cm) aa5 MDM: 10:40 Patient medically screened. estefany 11:00 Differential Diagnosis: Bronchitis Influenza Upper Respiratory Infection Sinusitis estefany Pneumonia. Data reviewed: vital signs, nurses notes, lab test result(s), radiologic studies, plain films. Data interpreted: court monitor: rate is 69 beats/min, rhythm is regular, Pulse oximetry: on room air is 96 %. Test interpretation: by ED physician or midlevel provider: plain radiologic studies. Counseling: I had a detailed discussion with the patient and/or guardian regarding: the historical points, exam findings, and any diagnostic results supporting the discharge/admit diagnosis, lab results, radiology results, the need for outpatient follow up, a family practitioner. 03/09 11:00 Order name: COVID-19 estefany 03/09 11:00 Order name: Flu estefany 03/09 11:00 Order name: Chest Single View XRAY estefany Administered Medications: 11:20 Drug: Zithromax 500 mg Route: PO; zb 12:58 Follow up: Response: No adverse reaction bp 11:20 Drug: predniSONE 60 mg Route: PO; zb 12:58 Follow up: Response: No adverse reaction bp 12:45 Drug: Pepcid 20 mg Route: PO; bp 13:01 Follow up: Response: No adverse reaction bp 12:45 Drug: Rocephin (cefTRIAXone) 1 grams Route: IM; Site: right gluteus; bp 13:01 Follow up: Response: No adverse reaction bp Disposition: 03/09/20 12:29 Discharged to Home. Impression: Acute upper respiratory infection, unspecified, Bronchitis, not specified as acute or chronic, Tobacco abuse counseling, Tobacco use. - Condition is Stable. - Discharge Instructions: Acute Bronchitis, Adult, Upper Respiratory Infection, Adult, Cool Mist Vaporizer, Tobacco Use Disorder, Cough, Adult, Nodh-ed-Eqcp, Aspirin and Your Heart, Cough, Adult. - Prescriptions for Zithromax Z- Deep 250 mg Oral Tablet - take 1 tablet by ORAL route as directed for 5 days Day 1 - take two (2) tablets one time. Day 2, 3, 4 , 5 take one (1) tablet once daily.; 6 tablet. Medrol (Deep) 4 mg Oral Tablets, Dose Pack - take 1 tablet by ORAL route as directed - follow package instructions; 1 packet. Albuterol Sulfate 90 mcg/actuation - inhale 1-2 puff by INHALATION route every 4-6 hours; 1 Inhaler. Pepcid 20 mg Oral Tablet - take 1 tablet by ORAL route every 12 hours for 10 days; 20 tablet. - Medication Reconciliation Form, Thank You Letter, Antibiotic Education, Prescription Opioid Use form. - Follow up: Private Physician; When: 2 - 3 days; Reason: Recheck today's complaints, Continuance of care, Re-evaluation by your physician. Follow up: Jose Miguel Grider MD; When: 2 - 3 days; Reason: Recheck today's complaints, Re-evaluation by your physician. - Problem is new. - Symptoms have improved. Signatures: Dispatcher [employer] Bill Modi MD MD cha Calderon, Audri, RN RN aa5 Adam Grande RN RN Liset Banegas RN RN zb Corrections: (The following items were deleted from the chart) 12:30 12:29 03/09/2020 12:29 Discharged to Home. Impression: Acute upper respiratory estefany infection, unspecified; Bronchitis, not specified as acute or chronic. Condition is Stable. Discharge Instructions: Acute Bronchitis, Adult, Upper Respiratory Infection, Adult, Cool Mist Vaporizer, Cough, Adult, Ykxq-so-Jnle, Cough, Adult. Prescriptions for Zithromax Z-Deep 250 mg Oral Tablet - take 1 tablet by ORAL route as directed for 5 days Day 1 - take two (2) tablets one time. Day 2, 3, 4 , 5 take one (1) tablet once daily.; 6 tablet, Medrol (Deep) 4 mg Oral Tablets, Dose Pack - take 1 tablet by ORAL route as directed - follow package instructions; 1 packet, Albuterol Sulfate 90 mcg/actuation - inhale 1-2 puff by INHALATION route every 4-6 hours; 1 Inhaler. and Forms are Medication Reconciliation Form, Thank You Letter, Antibiotic Education, Prescription Opioid Use. Follow up: Private Physician; When: 2 - 3 days; Reason: Recheck today's complaints, Continuance of care, Re-evaluation by your physician. Follow up: Jose Miguel Grider; When: 2 - 3 days; Reason: Recheck today's complaints, Re-evaluation by your physician. Problem is new. Symptoms have improved. [facility] 13:42 12:30 03/09/2020 12:29 Discharged to Home. Impression: Acute upper respiratory bp infection, unspecified; Bronchitis, not specified as acute or chronic; Tobacco abuse counseling; Tobacco use. Condition is Stable. Discharge Instructions: Acute Bronchitis, Adult, Upper Respiratory Infection, Adult, Cool Mist Vaporizer, Cough, Adult, Vmbj-jj-Wzra, Cough, Adult, Tobacco Use Disorder, Aspirin and Your Heart. Prescriptions for Zithromax Z-Deep 250 mg Oral Tablet - take 1 tablet by ORAL route as directed for 5 days Day 1 - take two (2) tablets one time. Day 2, 3, 4 , 5 take one (1) tablet once daily.; 6 tablet, Medrol (Deep) 4 mg Oral Tablets, Dose Pack - take 1 tablet by ORAL route as directed - follow package instructions; 1 packet, Albuterol Sulfate 90 mcg/actuation - inhale 1-2 puff by INHALATION route every 4-6 hours; 1 Inhaler, Pepcid 20 mg Oral Tablet - take 1 tablet by ORAL route every 12 hours for 10 days; 20 tablet. and Forms are Medication Reconciliation Form, Thank You Letter, Antibiotic Education, Prescription Opioid Use. Follow up: Private Physician; When: 2 - 3 days; Reason: Recheck today's complaints, Continuance of care, Re-evaluation by your physician. Follow up: Jose Miguel Grider; When: 2 - 3 days; Reason: Recheck today's complaints, Re-evaluation by your physician. Problem is new. Symptoms have improved. estefany
--- NOTE | 2020-03-09 12:29 | ER ---
Nurse's Notes [facility] Name: Ada Downs Age: 49 yrs Sex: Female : 1970 Arrival Date: 03/09/2020 Time: 09:57 Bed 19 Private MD: Diagnosis: Acute upper respiratory infection, unspecified;Bronchitis, not specified as acute or chronic;Tobacco abuse counseling;Tobacco use Presentation: 03/09 10:38 Chief complaint: Patient states: cough, sore throat, chest congestion, and SOB that aa5 began 2 weeks ago. 10:38 Acuity: JEANNIE 3 aa5 10:38 Method Of Arrival: Ambulatory aa5 10:38 Coronavirus screen: cough unrelated to allergies, muscle pain, sore throat. Ebola aa5 Screen: Patient negative for fever greater than or equal to 101.5 degrees Fahrenheit, and additional compatible Ebola Virus Disease symptoms. 10:38 Initial Sepsis Screen: Does the patient meet any 2 criteria? No. Patient's initial aa5 sepsis screen is negative. Does the patient have a suspected source of infection? No. Patient's initial sepsis screen is negative. Risk Assessment: Do you want to hurt yourself or someone else? Patient reports no desire to harm self or others. Onset of symptoms was February 2020. Triage Assessment: 10:40 General: Appears in no apparent distress. uncomfortable, ill, Behavior is calm, bp cooperative, appropriate for age. Pain: Complains of pain in SORE THROAT. EENT: Reports nasal congestion pain when swallowing. Neuro: No deficits noted. Cardiovascular: No deficits noted. Respiratory: Reports shortness of breath cough that is. GI: No signs and/or symptoms were reported involving the gastrointestinal system. : No signs and/or symptoms were reported regarding the genitourinary system. Derm: No deficits noted. Musculoskeletal: No deficits noted. Historical: - Allergies: 10:38 No Known Allergies; aa5 - Home Meds: 10:38 gabapentin 300 mg Oral cap 1 cap 3 times per day [Active]; Geodon 80 mg Oral cap 1 cap aa5 2 times per day [Active]; Trazodone Oral [Active]; - PMHx: 10:38 Bipolar disorder; kyphoid scoliosis; Schizophrenia; aa5 - PSHx: 10:38 Tubal ligation; aa5 - Immunization history:: Adult Immunizations unknown. - Social history:: Smoking status: Patient reports the use of cigarette tobacco products, smokes one pack cigarettes per day. - Family history:: not pertinent. Screenin:40 Abuse screen: Denies threats or abuse. Denies injuries from another. Nutritional bp screening: No deficits noted. Tuberculosis screening: No symptoms or risk factors identified. Fall Risk None identified. Assessment: 10:40 General: SEE TRIAGE NOTE. Respiratory: Airway is patent Respiratory effort is even, bp unlabored, Breath sounds are coarse bilaterally. EENT: Throat is reddened. 12:00 Reassessment: Patient appears in no apparent distress at this time. No changes from zb previously documented assessment. Patient and/or family updated on plan of care and expected duration. Pain level reassessed. XRAY AT B/S. 12:35 Reassessment: D/C ON HOLD PENDING LAB AND RAD RESULTS. bp 13:30 Reassessment: PT D/C HOME AMBULATORY, DX WITH BRONCHITIS AND VIRAL PNEUMONIA. bp Vital Signs: 10:38 BP 134 / 79; Pulse 71; Resp 16 S; Temp 98.4(O); Pulse Ox 95% on R/A; Weight 77.11 kg aa5 (R); Height 5 ft. 3 in. (160.02 cm) (R); Pain 6/10; 12:00 BP 123 / 70; Pulse 76; Resp 16; Pulse Ox 98% ; zb 13:00 BP 119 / 71; Pulse 74; Resp 17; Temp 98; Pulse Ox 98% ; bp 10:38 Body Mass Index 30.11 (77.11 kg, 160.02 cm) aa5 ED Course: 09:57 Patient arrived in ED. ag5 10:25 Bill Jimenez MD is Attending Physician. estefany 10:38 Arm band placed on Patient placed in an exam room, on a stretcher. aa5 10:39 Adam Grande, RITCHIE is Primary Nurse. bp 10:40 Patient has correct armband on for positive identification. Bed in low position. Call bp light in reach. Side rails up X2. 11:02 Triage completed. aa5 12:11 Chest Single View XRAY In Process Unspecified. EDMS 12:29 Jose Miguel Grider MD is Referral Physician. estefany 13:30 No provider procedures requiring assistance completed. Patient did not have IV access bp during this emergency room visit. Administered Medications: 11:20 Drug: Zithromax 500 mg Route: PO; zb 12:58 Follow up: Response: No adverse reaction bp 11:20 Drug: predniSONE 60 mg Route: PO; zb 12:58 Follow up: Response: No adverse reaction bp 12:45 Drug: Pepcid 20 mg Route: PO; bp 13:01 Follow up: Response: No adverse reaction bp 12:45 Drug: Rocephin (cefTRIAXone) 1 grams Route: IM; Site: right gluteus; bp 13:01 Follow up: Response: No adverse reaction bp Outcome: 12:29 Discharge ordered by . estefany 13:30 Discharged to home ambulatory. bp 13:30 Condition: stable 13:30 Discharge instructions given to patient, Instructed on discharge instructions, follow up and referral plans. medication usage, Demonstrated understanding of instructions, follow-up care, medications, Prescriptions given X 4. 13:42 Patient left the ED. bp Addendum: 03/12/2020 16:30 Addendum: COVID-19 Result: Negative result given to RN to notify pt. Unable to leave a a5 voice mail due to the number provided was either not a working number, the voice mail has not been set up, or the voice mailbox is full.. Other: Left voice mail with person to notify (pt's father) for patient to call back to ER. 16:39 Addendum: COVID-19 Result: Negative result given to RN to notify pt. Notified pt of a a5 negative COVID 19 swab results. Pt advised that even with a negative test result they should remain in isolation until symptom free for 3 days without medication. Pt also advised to return to the ED for worsening symptoms. Signatures: Dispatcher [employer] EDMO Bill Jimenez MD MD cha Calderon, Audri, RN RN Adam Alberto RN RN Greg Alexis ag5 Liset Montes RN RN zb
--- NOTE | 2020-03-09 12:59 | RAD REPORT ---
EXAM DESCRIPTION: RAD - Chest Single View - 03/09/2020 12:12 pm CLINICAL HISTORY: COUGH, sore throat, congestion, shortness of breath COMPARISON: December 2014 TECHNIQUE: AP portable chest image was obtained 03/09/2020 12:12 pm . FINDINGS: No dense consolidation seen. Patient has minimal patchy airspace opacification in the lung antonio more prominent than seen on the comparison. Viral infiltrate is possible. Heart and vasculatu re are normal. No measurable pleural effusion and no pneumothorax. No acute bony abnormality seen. No acute aortic findings suspected. IMPRESSION: Minimal patchy lung parenchymal opacification in both lung antonio suspicious for viral i nfiltrate. No focal consolidation to suspect bacterial pneumonia.
[2020-03-09] MEDS ORDERED: CEFTRIAXONE 1000 MG/VIAL ONE (13:05)
[2020-03-09] MEDS ORDERED: FAMOTIDINE 20 MG TAB ONE (13:05)
[2020-03-09] MEDS ORDERED: WATER FOR INJ,STERILE 10 ML ONE (13:06)
[2020-03-13 01:04] VITALS: O2SAT 98
[2020-03-13 01:06] VITALS: BP 119/71; TEMP 98
== END 2020-03-09 13:42 | disposition home or self-care (01) ==
LOC: ER 09:57
DX: J40 Bronchitis, not specified as acute or chronic (principal); Z20.828 Contact with and (suspected) exposure to other viral communicable diseases; Z72.0 Tobacco use; Z71.6 Tobacco abuse counseling; F20.9 Schizophrenia, unspecified
CPT/HCPCS: 71045; 87804; 96372; 99283; J7512; U0002

== ENCOUNTER 2020-06-26 19:07 | Emergency (ER) | payer SELFPAY ==
--- OUTSIDE RECORDS SUMMARY | 2020-06-26 19:11 | XMS REPORT | Continuity of Care Document ---
:1970 Author Organization [facility] t Address [address] [place] [address] Care Team Providers Name Role Phone Sharpless [...] Allergie 04-20 Mainlan s 00:00: d 00 [facility] Social History Social Habit Start Date Stop Date Quantity Comments Source Sex Assigned At [facility] Alcohol intake 2017-05-16 2017-05-16 Current [facility] es - 00:00:00 00:00:00 non-drinker of Medical Ce nter alcohol (finding) Smoking Status Start Date Stop Date Source Current every day smoker 2017-05-16 00:00:00 [facility] Medications Ordered Filled Start Stop Current Ordering Indication Dosage Frequency Signature Comments Components Source Medication Medication Date Date Medication? Clinician (SIG) Name Name traMADol Yes 50mg Take [address] [facility] [address] (ULTRAM) 50 2-19 tablet (50 Jennifer kes - mg tablet 00:00: mg total) Med ical 00 by mouth Center every 6 (six) hours as needed for Pain for up to 10 doses. Max Daily Amount: 200 mg Procedures This patient has no known procedures. Encounters Start End Encounter Admission Attending Care Care Encounter Source Date/Time Date/Time Type Type Clinicians Facility Department ID 2019-11-08 2019-11-09 Emergency 1 Jennifer Garciairam [facility] [id number] St. 20:50:00 03:40:00 [facility] 2019-11-08 2019-11-08 [id number] 20:50[facility]50:[facility] 2019-10-15 2019-10-30 Inpatient 1 [facility] PSY [id number] [facility] 18:45:00 [facility] Results Test Description Test Time Test Comments [...] code = IPF) 0 % N Automated [id number] 23:33:44 Test Item Value Reference Range Interpretation Comments Neutro Auto (test code = Neutro 69.3 % 36.0-70.0 Auto) Lymph Auto (test code = Lymph Auto) 22.3 % 12.0-44.0 [place] Auto (test code = [place] Auto) 6.8 % 0.0-11.0 Eos, Auto (test code = Eos, Auto) 1.1 % 0.0-7.0 Basophil Auto (test code = Basophil 0.2 % 0.0-2.0 Auto) Neutro Absolute (test code = Neutro 6.8 x10 1.6-7.4 Absolute) Lymph Absolute (test code = Lymph 2.19 x10 .50-4.60 Absolute) [place] Absolute (test code = [place] .67 x10 .00-1.20 Absolute) Eos Absolute (test code = Eos 0.11 x10 0.00-0.74 Absolute) Baso Absolute (test code = Baso 0.02 x10 0.00-0.21 Absolute) IG [id number] 23:33:44 Test Item Value Reference Range Interpretation Comments IG (test code = IG) 0.3 % 0.0-5.0 IG Abs (test code = IG Abs) 0 x10 N Comprehensive Metabolic [id number] 22:49:11 Test Item Value Reference Range Interpretation [...] Lipemia) 0 g/dL 1-2 H Comprehensive Metabolic [id number] 22:49:11 Test Item Value Reference Range Interpretation [...] = 0 g/dL 1-2 H Lipemia) Acetaminophen [id number] 22:49:11 Test Item Value Reference Range Interpretation Comments Acetaminophen Level <0.2 mg/dL N Therapeu tic range (test code = 1.0-2.0 mg/dlTo xic Acetaminophen Level) concent ration 4 hours post ingestion - >15.0 mg/dlToxi c concentration 1 2 hours post emiliano stion - >4 mg/dl Alcohol [id number] 22:49:11 Test Item Value Reference Range Interpretation Comments Ethanol Level 7.3 mg/dL N The pharmacolo gical (test code = response to blo od alcohol Ethanol Level) levels may va ry from individual to i ndividual. The fatal carlos ntration has been report ed to be >400 mg/dl. Salicylate [id number] 22:49:11 Test Item Value Reference Range Interpretation Comments Salicylate Level (test <3.0 mg/dL N Salic ylate is toxic code = Salicylate above 30 m g/dl for Level) adults. Comprehensive Metabolic [id number] 22:49:11 Test Item Value Reference Range Interpretation [...] ag e have not been validated by [facility] MDRD study and should be interpreted wit [...] ag e have not been validated by [facility] MDRD study and should be interpreted wit [...] 0 g/dL 1-2 H Lipemia) HCG Qualitative [id number] 22:47:33 Test Item Value Reference Range Interpretation [...] 72 hours. Lot # (test code = [id number] N Lot #) Expiration Dt (test 11/25/2020 N code = Expiration Dt) Neg Control (test Negative code = Neg Control) Pos Control (test Positive code = Pos Control) Internal QC (test Acceptable code = Internal QC) Urinalysis [id number] 22:47:33 Test Item Value Reference Range Interpretation Comments UA WBC (test code = UA WBC) 0-5 0-5 UA RBC (test code = UA RBC) 0-5 0-5 UA Bacteria (test code = UA None Seen Bacteria) UA Squam Epithelial (test code = UA 0-5 Squam Epithelial) UA Amorph Mary Ann (test code = UA Moderate A Amorph Mary Ann) Urine [id number] [id number] 22:47:33 Test Item Value Reference Range Interpretation [...] i s equal to or greater t sahley 25 ng/ml.If confir mation of positive res [...] thin 7 days. Urinalysis with Culture, if [id number] 22:42:29 Test Item Value Reference Range Interpretation [...] Indicated Not Indicated A Ind?) HCG Qualitative [id number] 14:19:05 Test Item Value Reference Range Interpretation Comments HCG, Serum Qual (test code = HCG, Negative Negative Serum Qual) Thyroxine Free [id number] 13:02:56 Test Item Value Reference Range Interpretation Comments T4 Free (test code = T4 Free) 1.66 ng/dL 0.89-1.76 Triiodothyronine [id number] 13:02:56 Test Item Value Reference Range Interpretation Comments T3 Free (test code = T3 Free) 2.65 pg/mL 2.30-4.20 Thyroid Stimulating [id number] 09:19:22 Test Item Value Reference Range Interpretation Comments TSH (test code = TSH) 0.341 mcIU/mL 0.550-4.780 L Lipid [id number] 13:21:26 Test Item Value Reference Range Interpretation [...] is LDL/HDL Ratio=L DL Calc/HDL Chol Hemoglobin [id number] 13:15:51 Test Item Value Reference Range Interpretation Comments Hemoglobin A1c (test code 4.7 % 4.0-5.8 Di abetic >=6.5 = Hemoglobin A1c) %Prediabet es 5.7-6.4 %Normal <5.7 % RPR [id number] 12:11:10 Test Item Value Reference Range Interpretation [...] 12-25-2020 N Expiration Dt) Novel Coronavirus SARS-CoV-2, [id number] 16:39:36 Test Item Value Reference Range Interpretation [...] Administration s Emergency Use Authorization." Urine DOA [id number] 20:49:06 Test Item Value Reference Range Interpretation [...] Confirmation wi thin 7 days. Comprehensive Metabolic [id number] 19:57:51 Test Item Value Reference Range Interpretation [...] = Lipemia) 0 g/dL 1-2 Comprehensive Metabolic [id number] 19:57:51 Test Item Value Reference Range Interpretation [...] code = 0 g/dL 1-2 Lipemia) Alcohol [id number] 19:57:51 Test Item Value Reference Range Interpretation Comments Ethanol Level <3.0 mg/dL N The pharmacolo gical (test code = response to blo od alcohol Ethanol Level) levels may va ry from individual to i ndividual. The fatal carlos ntration has been report ed to be >400 mg/dl. Comprehensive Metabolic [id number] 19:57:51 Test Item Value Reference Range Interpretation [...] code = 0 g/dL 1-2 Lipemia) IG [id number] 19:42:51 Test Item Value Reference Range Interpretation Comments IG (test code = IG) 0.2 % 0.0-5.0 IG Abs (test code = IG Abs) 0 x10 N Complete Blood Count with [id number] 19:42:50 Test Item Value Reference Range Interpretation [...] Abs (test code = 0.00 x10 N NR Abs) IPF (test code = IPF) 0 % N Automated [id number] 19:42:50 Test Item Value Reference Range Interpretation Comments Neutro Auto (test code = Neutro 80.5 % 36.0-70.0 H Auto) Lymph Auto (test code = Lymph Auto) 13.5 % 12.0-44.0 [place] Auto (test code = [place] Auto) 5.7 % 0.0-11.0 Eos, Auto (test code = Eos, Auto) 0.0 % 0.0-7.0 Basophil Auto (test code = Basophil 0.1 % 0.0-2.0 Auto) Neutro Absolute (test code = Neutro 7.4 x10 1.6-7.4 Absolute) Lymph Absolute (test code = Lymph 1.25 x10 .50-4.60 Absolute) [place] Absolute (test code = [place] .53 x10 .00-1.20 Absolute) Eos Absolute (test code = Eos 0.00 x10 0.00-0.74 Absolute) Baso Absolute (test code = Baso 0.01 x10 0.00-0.21 Absolute) RAPID DRUG SCREEN, [id number] 12:50:00 Test Item Value Reference Range Interpretation [...] situations. Chain of custody not maintained. Some weiz-eie-chsezfw medications, as well as adulterants, may cause inaccurate results. Clinical correlation should be applied. A more comprehensive drug screen or confirmation of a detected drug may be performed upon request. RAD, CHEST, 1 VIEW, NON [id number] 12:49:00Reason for exam:->chest painIs the patient ?->UnknownShould this be performed at the [facility]?->YesFINAL REPORT Chest one view AP 05/16/2017 12:49 PM CLINICAL HISTORY: chest pain COMPARISON: None available FINDINGS: The lungs are clear. Cardiomediastinal contours are within normal limits. The central pulmonary vasculature is not engorged. IMPRESSION: Unremarkable frontal chest radiograph. Signed: Lebron Downey Verified Date/Time: 05/16/2017 12:49:42 Reading Location: [address] Consult Reading Room CREATINE KINASE (CK), TOTAL AND [id number] 12:27:00 Test Item Value Reference Range Interpretation Comments CREATINE KINASE TOTAL (BEAKER) 49 U/L 29-200 (test code = 380) CREATINE KINASE-MB (BEAKER) (test 0.8 ng/mL 0.0-6.6 code = 750) CREATINE KINASE-MB INDEX (BEAKER) 1.6 % (test code = 395) CK-MB Reference Range:<6.7 Normal6.7-10.0 Borderline>10.0 AbnormalSALICYLATE [id number] 12:25:00 Test Item Value Reference Range Interpretation Comments SALICYLATE LEVEL (BEAKER) (test code < mg/dL 15.0-30.0 L = 764) Therapeutic Range: 15.0-30.0 mg/dLToxic: >30.0 mg/dL Lethal: >70.0 mg/dLACETAMINOPHEN [id number] 12:25:00 Test Item Value Reference Range Interpretation Comments ACETAMINOPHEN LEVEL (BEAKER) (test < ug/mL 10.0-30.0 L code = 344) Therapeutic Range: 10.0-30.0 g/mLToxic Levels: >200.0 g/mLURINALYSIS W/ [id number] 12:24:00 Test Item Value Reference Range Interpretation [...] Urine, Clean Catch = 2795) HEPATIC FUNCTION [id number] 12:20:00 Test Item Value Reference Range Interpretation [...] = 9 U/L 6-55 347) BASIC METABOLIC [id number] 12:20:00 Test Item Value Reference Range Interpretation [...] DATA TO CALCU LATE m ESTIMATED GFR. [id number] 12:18:00 Test Item Value Reference Range Interpretation Comments ETHANOL (BEAKER) (test code = 400) < mg/dL <=10 CBC W/PLT COUNT & AUTO [id number] 11:50:00 Test Item Value Reference Range Interpretation [...] % 0-1 PERCENT (BEAKER) (test code = 7517)
[2020-06-26] MEDS ORDERED: KETOROLAC 30 MG/ML INJ ONE (19:52)
[2020-06-26] MEDS ORDERED: LORazepam 2 MG/ML VIAL ONE (19:52)
[2020-06-26] MEDS ORDERED: ONDANSETRON 4 MG/2 ML VIAL ONE (19:52)
[2020-06-26] MEDS ORDERED: NA CHLORIDE 0.9% 1,000 ML ONE ×2 (19:52→22:17)
[2020-06-26 20:00] LABS: Absolute Lymphocytes (CBC) 0.8 K/uL (0.7-4.9); Basophils % 0.1 % (0-1.3); Lymphocytes % 5.9 % (15.3-44.8); RBC Red Blood Cell Count 5.11 M/uL (3.86-4.86)
[2020-06-26 20:01] LABS: Protime INR 0.96
[2020-06-26 20:25] LABS: ALT/SGPT 287 U/L (12-78); AST/SGOT 1133 U/L (15-37); Albumin 3.5 g/dL (3.4-5.0); Alkaline Phosphatase 131 U/L (45-117); BUN Blood Urea Nitrogen 37 mg/dL (7-18); Bicarbonate 22 mmol/L (21-32); Bilirubin Direct 0.3 mg/dL (0-0.2); Glucose Level 62 mg/dL (74-106); Lipase 133 U/L (73-393); Magnesium 2.8 mg/dL (1.8-2.4); Protein, Total 7.9 g/dL (6.4-8.2); Sodium Level 127 mmol/L (136-145); Troponin (Emerg Dept Use Only) 0.48 ng/mL (0.0-0.045)
--- NOTE | 2020-06-26 20:25 | RAD REPORT ---
EXAM DESCRIPTION: RAD - Chest Single View - 06/26/2020 8:07 pm CLINICAL HISTORY: ABDOMINAL DISTENTION, respiratory depression, unresponsive COMPARISON: Portable chest March 09, 2020, CT chest December 2014 TECHNIQUE: AP portable chest image was obtained 06/26/2020 8:07 pm . FINDINGS: No peripheral mass consolidation. No significant failure or volume overload. Peripheral in terstitial pattern not substantially different. There is some minimal patchy opacification in the low er right lung field. Mediastinal and right infrahilar granulomatous type calcifications are present. These were seen on the 2014 CT study. Heart and vasculature are normal. No measurable pleural effusio n and no pneumothorax. No acute bony abnormality seen. No acute aortic findings suspected. IMPRESSION: Questionable patchy infiltrate lower right lung field superimposed on mild chronic inter stitial pattern. Patient has known hilar and right infrahilar granulomatous type calcifications. Infrahilar calcificat ion appears slightly larger than prior imaging. This may be the confluence of multiple smaller calcif ied granulomas.
[2020-06-26 20:30] LABS: Potassium 6.1 mmol/L (3.5-5.1)
--- NOTE | 2020-06-26 21:47 | RAD REPORT ---
EXAM DESCRIPTION: CT - Head C Spine Cap Alex Wills - 06/26/2020 9:09 pm CLINICAL HISTORY: found by EMS on ground COMPARISON: No comparisons TECHNIQUE: Axial [address] head images were obtained. Axial [address] cervical spine images were obtain ed with sagittal and coronal reconstruction images reviewed. Axial 5 mm images of the chest, abdomen and pelvis were obtained. All CT scans are performed using dose optimization technique as appropriate and may include automated exposure control or mA/KV adjustment according to patient size. FINDINGS: No intracranial hemorrhage, mass or edema. No midline shift or abnormal fluid collection. Mastoid air cells and paranasal sinuses are clear. No skull fracture. Cervical bodies are normal in height. No subluxation abnormality. There is reversal of the usual cerv ical lordosis with the apex at C5. Lower cervical facet joint degenerative changes are present mild i n severity.C6-7 disc space narrowing present with endplate spurring.No fracture or acute bone finding .No disk space narrowing.No prevertebral soft tissue thickening or paraspinal mass.Central canal deta il is inherently limited on CT imaging. CT chest shows no pneumothorax, pulmonary contusion or pleural fluid collection. Patient has very min imal reticulonodular opacities in each mid lung field possibly a very minimal pneumonitis. No mass or consolidation. Patient has numerous right hilar and right infrahilar granulomatous type calcificatio ns. These have enlarged from prior imaging but are densely calcified indicating a benign process. No chest will mass or abnormal axillary finding. No displaced rib fracture or other significant bony fin ding. Patient has a large left thyroid lobe. Patient has a known 5 centimeter thyroid mass dating back to a t least 2016. Dilated fluid-filled esophagus present. Fluid-filled stomach is present. This is likely reflux into t he esophagus. Patient may have decreased or for esophageal function. CT abdomen and pelvis show no injury to solid abdominal viscera. Multi stone cholelithiasis present. No biliary tree dilatation. Numerous distended but nondilated small bowel loops are present with air- fluid levels. No abrupt transition point seen. No acute colon finding. There are no appendicitis find ings. Portal venous gas is present in the liver and there are numerous linear and curvilinear gas densities along the mesenteric vasculature consistent with mesenteric venous gas as well. No definitive pneuma tosis. No free air identified. No abnormal free fluid collection. No abscess. No hernia, mass or bulky lymphadenopathy. No urinary bladder abnormality. Uterus and ovaries show no suspicious findings. No significant bony finding. Absence of IV contrast limits full evaluation and differential assessment of the above findings. Findings telephoned to doctor Jimenez 9:40 p.m.. IMPRESSION: Extensive portomesenteric vein gas pattern in the liver and mesentery. The most emergent etiology for portomesenteric gas is bowel ischemia. Infectious/inflammatory etiologies are possible. Correlation is needed with clinical presentation. Surgical consultation will likely be needed. Cholelithiasis is present. No biliary tree dilatation. No acute or significant CT Head finding. Cervical spine degenerative change with no acute finding. Patient may have trace pneumonitis change in each mid lung field. No acute or significant CT chest fi nding. Additional nonacute findings detailed in the body of the report.
[2020-06-26] MEDS ORDERED: INSULIN -REGULAR HUMAN 50 UNIT/0.5 ML ML ONE (22:15)
[2020-06-26] MEDS ORDERED: D50W 25 GM/50 ML SYRINGE IV ONE (22:16)
[2020-06-26] MEDS ORDERED: SODIUM BICARB 50 MEQ/50ML VIAL ONE (22:16)
[2020-06-26] MEDS ORDERED: PIPER/TAZO/NS 3.375gm 3.375 GM/100 ML BAG ONE (22:17)
[2020-06-26] MEDS ORDERED: CALCIUM GLUCONATE 1 GM IVPB 1 GM/50 ML BAG IV ONE (22:17)
[2020-06-26 22:42] LABS: Barbiturates NEGATIVE (NEGATIVE); Benzodiazepines NEGATIVE (NEGATIVE); Cocaine NEGATIVE (NEGATIVE); METHAMPHETAM POSITIVE (NEGATIVE); Methadone NEGATIVE (NEGATIVE); Opiates POSITIVE (NEGATIVE); Phencyclidine NEGATIVE (NEGATIVE); THC Cannibis POSITIVE (NEGATIVE)
--- NOTE | 2020-06-26 22:45 | ER ---
Nurse's Notes [facility] [place] Name: Ada Downs Age: 50 yrs Sex: Female : 1970 Arrival Date: 06/26/2020 Time: 19:08 Bed 19 Private MD: Diagnosis: Acute kidney failure, unspecified;Hyperkalemia;Non-ST elevation (NSTEMI) myocardial infarction;Small bowel ischemia Presentation: 06/26 19:13 Chief complaint: EMS states: was toned for Pt being unresponsive and respiratory wh depression. Pt was given Narcan 2mg Intra Nasal. Pt now AOx4. Ptdenies taking any drugs states she was just sleeping. Pt now complaining of abdominal pain. Coronavirus screen: Client denies travel out of the [place] in the last 14 days. At this time, the client does not indicate any symptoms associated with coronavirus-19. Ebola Screen: Patient negative for fever greater than or equal to 101.5 degrees Fahrenheit, and additional compatible Ebola Virus Disease symptoms Patient denies exposure to infectious person. Initial Sepsis Screen: Does the patient meet any 2 criteria? HR > 90 bpm. Does the patient have a suspected source of infection? Yes: Acute abdominal pain. Risk Assessment: Do you want to hurt yourself or someone else? Patient reports no desire to harm self or others. Onset of symptoms was June 26, 2020. 19:13 Method Of Arrival: EMS: [facility] 19:13 Acuity: JEANNIE 3 19:16 Care prior to arrival: Medication(s) given: Narcan 2mg Intranasal. 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 - Social history:: Smoking status: Patient reports the use of cigarette tobacco products, smokes one pack cigarettes per day. Patient/guardian denies using alcohol, street drugs. Screenin:16 Abuse screen: Denies threats or abuse. Denies injuries from another. Nutritional screening: No deficits noted. Tuberculosis screening: No symptoms or risk factors identified. Fall Risk None identified. Assessment: 19:16 General: Appears unkempt, Behavior is cooperative. Pain: Complains of pain in left wh upper quadrant and left lower quadrant Pain does not radiate. Pain currently is 7 out of 10 on a pain scale. Pain began 2 hours ago. Neuro: Level of Consciousness is awake, alert, obeys commands, Oriented to person, place, time, situation. Cardiovascular: Heart tones S1 S2. Respiratory: Airway is patent Respiratory effort is even, unlabored, Respiratory pattern is regular, symmetrical, Breath sounds are clear bilaterally. GI: Abdomen is flat, non-distended, Abd is soft Abdomen is tender to palpation in left upper quadrant and left lower quadrant Reports lower abdominal pain, upper abdominal pain, diarrhea. : No signs and/or symptoms were reported regarding the genitourinary system. EENT: No signs and/or symptoms were reported regarding the EENT system. Derm: Skin is intact. Musculoskeletal: Circulation, motion, and sensation intact. 20:25 Reassessment: Patient appears in no apparent distress at this time. No changes from previously documented assessment. Patient and/or family updated on plan of care and expected duration. Pain level reassessed. 21:33 Reassessment: Patient appears in no apparent distress at this time. No changes from previously documented assessment. Patient and/or family updated on plan of care and expected duration. Pain level reassessed. 23:45 Reassessment: Patient appears in no apparent distress at this time. Patient and/or family updated on plan of care and expected duration. Pain level reassessed. 06/27 00:30 Reassessment: Report given to Kris Khan RN. 01:30 Reassessment: Patient appears in no apparent distress at this time. Patient and/or family updated on plan of care and expected duration. Pain level reassessed. Vital Signs: 06/26 19:13 BP 171 / 93; Pulse 104; Resp 20; Temp 98.2; Pulse Ox 94% ; Weight 77.11 kg; Height 5 ft. 4 in. (162.56 cm); Pain 7/10; 21:33 BP 105 / 84; Pulse 108; Resp 18; Pulse Ox 95% on 3 lpm NC; 23:45 BP 143 / 104; Pulse 97; Resp 20; Pulse Ox 96% on 3 lpm NC; 06/27 01:30 BP 101 / 79; Pulse 113; Resp 20; Pulse Ox 95% on 3 lpm NC; wh 06/26 19:13 Body Mass Index 29.18 (77.11 kg, 162.56 cm) ED Course: 06/26 19:08 Patient arrived in ED. mw2 19:09 Bill Acevedo PA is PHCP. cp 19:09 Bill Jimenez MD is Attending Physician. cp 19:12 Rossy Thapa, RITCHIE is Primary Nurse. wh 19:15 Triage completed. wh 19:18 Arm band placed on left wrist. wh 19:18 Patient has correct armband on for positive identification. Placed in gown. Bed in low wh position. Call light in reach. Side rails up X 1. Pulse ox on. NIBP on. 20:00 Inserted saline lock: 18 gauge in right EJ, using aseptic technique. Blood collected. wh By Bill ARIAS. 20:18 XRAY Chest (1 view) In Process Unspecified. EDMS 21:09 CT Traumagram (Head C Spine CAP wo con) In Process Unspecified. EDMS 22:30 initiated a transfer with Celia from [facility] Transfer Center. mw2 22:40 doc to doc with the ER doc from [facility]. mw2 22:42 administrative approval given by Celia Vo/ patient has been accepted to [address] ER/ Dr. Torres has accepted the patient in transfer/ report to be called to [phone]. 06/27 01:50 No provider procedures requiring assistance completed. Patient transferred, IV remains in place. Administered Medications: 06/26 19:40 Drug: NS 0.9% 1000 ml Route: IV; Rate: 1 bolus; Site: right jugular; 21:34 Follow up: Response: No adverse reaction; IV Status: Completed infusion 19:42 Drug: TORadol - Ketorolac 15 mg Route: IVP; Site: right jugular; 21:34 Follow up: Response: No adverse reaction; Pain is decreased 19:44 Drug: Ativan 1 mg Route: IVP; Site: right jugular; 21:34 Follow up: Response: No adverse reaction; Pain is decreased; RASS: Drowsy (-1) 19:46 Drug: Zofran (Ondansetron) 4 mg Route: IVP; Site: right jugular; 21:35 Follow up: Response: No adverse reaction; Nausea is decreased 22:06 Drug: NS 0.9% 1000 ml Route: IV; Rate: 1 bolus; Site: right jugular; 06/27 01:53 Follow up: Response: No adverse reaction; IV Status: Completed infusion 01:54 Follow up: Response: No adverse reaction; IV Status: Completed infusion 06/26 22:08 Drug: Sodium Bicarbonate 1 amp Route: IVP; Site: right jugular; 06/27 01:54 Follow up: Response: No adverse reaction 06/26 22:10 Drug: D50W 50 ml Route: IVP; Site: right jugular; 06/27 01:54 Follow up: Response: No adverse reaction 06/26 22:14 Drug: Insulin Regular Human 5 units {Co-Signature: rr5 (Toño De Los Santos RN).} Route: IVP; Site: right jugular; 06/27 01:54 Follow up: Response: No adverse reaction 06/26 22:16 Drug: Calcium Gluconate 1 grams Route: IVPB; Infused Over: 60 mins; Site: right jugular; 06/27 01:53 Follow up: Response: No adverse reaction; IV Status: Completed infusion 06/26 23:16 Drug: Zosyn 3.375 grams Route: IVPB; Infused Over: 60 mins; Site: right jugular; 06/27 01:53 Follow up: Response: No adverse reaction; IV Status: Completed infusion 06/26 23:46 Drug: Aspirin Suppository 300 mg Route: [place]; 06/27 01:53 Follow up: Response: No adverse reaction Outcome: 06/26 22:44 ER care complete, transfer ordered by . 06/27 01:50 Transferred by ground EMS Transfer form completed. X-rays sent w/ patient. Note: Transferred to [facility], report given to [place] [facility] Condition: stable Instructed on the need for transfer. 01:54 Patient left the ED. Signatures: Dispatcher [employer] EDMS Bill Acevedo PA PA cp Habalo, Winsy, RN RN Brianna Watkins mw2 Toño De Los Santos RN [email or web address] Corrections: (The following items were deleted from the chart) 06/26 19:18 19:16 GI: Abdomen is flat, non-distended, Abd is soft Abdomen is tender to palpation in left upper quadrant and left lower quadrant Reports lower abdominal pain, upper abdominal pain, wh
--- NOTE | 2020-06-26 22:45 | EDPHYS ---
Physician Documentation [facility] Name: Ada Downs Age: 50 yrs Sex: Female : 1970 Arrival Date: 06/26/2020 Time: 19:08 Bed 19 Private MD: ED Physician Bill Jimenez HPI: 06/26 19:35 This 50 yrs old Female presents to ER via EMS with complaints of Alteered cp Mental Status. 19:35 The patient's problem is reported as altered mental status, confused, found cp unresponsive by EMS. Onset: The symptoms/episode began/occurred at an unknown time. Unable to obtain HPI due to altered mental status. Patient given 2 mg of intranasal Narcan by EMS and became more alert. 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 - Social history:: Smoking status: Patient reports the use of cigarette tobacco products, smokes one pack cigarettes per day. Patient/guardian denies using alcohol, street drugs. ROS: 19:38 Abdomen/GI: Positive for abdominal pain, abdominal distension. cp 19:38 Constitutional: Negative for fever, poor PO intake. cp 19:38 Cardiovascular: Negative for chest pain. 19:38 Respiratory: Negative for cough, shortness of breath, wheezing. 19:38 Neuro: Positive for altered mental status. 19:38 Unable to obtain ROS due to altered mental status. Exam: 19:42 Constitutional: The patient appears alert, awake, non-diaphoretic, well developed, well cp nourished, obviously ill. 19:42 Head/Face: Normocephalic, atraumatic. cp 19:42 Eyes: Periorbital structures: appear normal, Pupils: equal, round, and reactive to light and accomodation, Extraocular movements: intact throughout, Conjunctiva: normal, no exudate, no injection, Sclera: no appreciated abnormality, Lids and lashes: appear normal, bilaterally. 19:42 ENT: External ear(s): are unremarkable, Nose: is normal, Mouth: Lips: dry, Oral mucosa: dry, Posterior pharynx: Airway: no evidence of obstruction, patent. 19:42 Neck: ROM/movement: is normal, is supple, without pain, no range of motions limitations, no meningismus. 19:42 Chest/axilla: Inspection: normal, Palpation: is normal, no crepitus, no tenderness. 19:42 Cardiovascular: Rate: tachycardic, Rhythm: regular, Edema: is not appreciated, JVD: is not appreciated. 19:42 Respiratory: the patient does not display signs of respiratory distress, Respirations: normal, no use of accessory muscles, no retractions, labored breathing, is not present, Breath sounds: are clear throughout, no decreased breath sounds. 19:42 Abdomen/GI: Inspection: distension, that is moderate, Bowel sounds: active, all quadrants, Palpation: soft, in all quadrants, severe abdominal tenderness, in all quadrants, rebound tenderness, is not appreciated, voluntary guarding, is elicited in all quadrants. 19:42 Back: pain, is absent, ROM is normal. 19:42 Neuro: Orientation: to person, Mentation: able to follow commands, confused, Motor: moves all fours, strength is normal. 20:00 ECG was reviewed by the Attending Physician. Vital Signs: 19:13 BP 171 / 93; Pulse 104; Resp 20; Temp 98.2; Pulse Ox 94% ; Weight 77.11 kg; Height 5 wh ft. 4 in. (162.56 cm); Pain 7/10; 21:33 BP 105 / 84; Pulse 108; Resp 18; Pulse Ox 95% on 3 lpm NC; wh 23:45 BP 143 / 104; Pulse 97; Resp 20; Pulse Ox 96% on 3 lpm NC; 06/27 01:30 BP 101 / 79; Pulse 113; Resp 20; Pulse Ox 95% on 3 lpm NC; 06/26 19:13 Body Mass Index 29.18 (77.11 kg, 162.56 cm) Procedures: 06/26 20:00 Peripheral line: by aseptic technique a peripheral line was placed in the right external jugular vein. MDM: 19:10 Patient medically screened. cp 21:00 Data reviewed: vital signs, nurses notes, lab test result(s), EKG, radiologic studies, cp plain films, I have discussed the patient's presentation/case with the attending Emergency Department Physician;. 21:00 Test interpretation: by ED physician or midlevel provider: ECG. cp 06/26 19:30 Order name: Basic Metabolic Panel; Complete Time: 20:44 cp 06/26 20:47 Interpretation: Normal except: NA 127; K 6.1; CL 90; GLUC 62; BUN 37; CRE 3.24; GFR 15; cp CA 8.2. 06/26 19:30 Order name: CBC with Diff; Complete Time: 20:27 cp 06/26 20:27 Interpretation: Normal except: WBC 13.40; RBC 5.11; HGB 17.0; HCT 52.0; MCV 101.9; RDW cp 15.6; NICOLE% 83.6; LYM% 5.9; NEUT A 11.2; MNA 1.4. 06/26 19:30 Order name: LFT's; Complete Time: 20:44 cp 06/26 20:48 Interpretation: Normal except: AST 1133; ALT 287; ALK 131; BILID 0.3; GLOB 4.4; A/G 0.8.cp 06/26 19:30 Order name: Magnesium; Complete Time: 20:44 cp 06/26 19:30 Order name: PT-INR cp 06/26 19:30 Order name: Troponin (emerg Dept Use Only); Complete Time: 20:44 cp 06/26 20:45 Interpretation: Abnormal: TROPED 0.48. cp 06/26 19:30 Order name: Lipase; Complete Time: 20:44 cp 06/26 19:30 Order name: UDS; Complete Time: 22:48 cp 06/26 22:48 Interpretation: Normal except: METHAMPHETAMINE POSITIVE; THC POSITIVE; OPI POSITIVE. cp 06/26 19:30 Order name: ETOH Level; Complete Time: 20:27 cp 06/26 19:30 Order name: Acetaminophen; Complete Time: 20:44 cp 06/26 20:14 Order name: Protime (+INR); Complete Time: 20:27 EDMS 06/26 20:47 Order name: CK; Complete Time: 22:48 cp 06/26 22:16 Order name: COVID-19 : Document "Date of Symptom Onset" if Symptomatic. [facility] 06/26 19:30 Order name: XRAY Chest (1 view); Complete Time: 20:27 cp 06/26 20:45 Order name: CT Traumagram (Head C Spine CAP wo con); Complete Time: 22:03 cp 06/26 22:24 Order name: SARS-COV-2 RT PCR; Complete Time: 22:29 EDNC 06/26 22:31 Order name: Lactate 06/26 22:31 Order name: Procalcitonin 06/26 22:31 Order name: Blood Culture Adult (2) 06/26 22:31 Order name: Lactate EDNC 06/26 22:31 Order name: Procalcitonin [facility] 06/26 19:30 Order name: EKG; Complete Time: 19:31 cp 06/26 19:30 Order name: Cardiac monitoring; Complete Time: 19:45 cp 06/26 19:30 Order name: EKG - Nurse/Tech; Complete Time: 19:45 cp 06/26 19:30 Order name: IV Saline Lock; Complete Time: 19:45 cp 06/26 19:30 Order name: Labs collected and sent; Complete Time: 19:45 cp 06/26 19:30 Order name: O2 Per Protocol; Complete Time: 19:45 cp 06/26 19:30 Order name: O2 Sat Monitoring; Complete Time: 19:45 cp 06/26 19:30 Order name: Urine Dipstick-Ancillary (obtain specimen); Complete Time: 22:07 cp 06/26 19:30 Order name: Urine Test (obtain specimen); Complete Time: 22:07 cp 06/26 20:46 Order name: Alejandra; Complete Time: 21:34 cp 06/26 21:12 Order name: Vital Signs: please update; Complete Time: 21:34 cp EC:00 Rate is 112 beats/min. Rhythm is regular. WI interval is normal. QRS interval is cp prolonged at 130 msec. QT interval is normal. T waves are Inverted in leads III, aVR. Interpreted by me. Reviewed by me. Administered Medications: 19:40 Drug: NS 0.9% 1000 ml Route: IV; Rate: 1 bolus; Site: right jugular; 21:34 Follow up: Response: No adverse reaction; IV Status: Completed infusion 19:42 Drug: TORadol - Ketorolac 15 mg Route: IVP; Site: right jugular; 21:34 Follow up: Response: No adverse reaction; Pain is decreased 19:44 Drug: Ativan 1 mg Route: IVP; Site: right jugular; 21:34 Follow up: Response: No adverse reaction; Pain is decreased; RASS: Drowsy (-1) 19:46 Drug: Zofran (Ondansetron) 4 mg Route: IVP; Site: right jugular; 21:35 Follow up: Response: No adverse reaction; Nausea is decreased 22:06 Drug: NS 0.9% 1000 ml Route: IV; Rate: 1 bolus; Site: right jugular; 06/27 01:53 Follow up: Response: No adverse reaction; IV Status: Completed infusion 01:54 Follow up: Response: No adverse reaction; IV Status: Completed infusion 06/26 22:08 Drug: Sodium Bicarbonate 1 amp Route: IVP; Site: right jugular; 06/27 01:54 Follow up: Response: No adverse reaction 06/26 22:10 Drug: D50W 50 ml Route: IVP; Site: right jugular; 06/27 01:54 Follow up: Response: No adverse reaction 06/26 22:14 Drug: Insulin Regular Human 5 units {Co-Signature: [email or web address] (Toño De Los Santos RN).} Route: IVP; Site: right jugular; 06/27 01:54 Follow up: Response: No adverse reaction 06/26 22:16 Drug: Calcium Gluconate 1 grams Route: IVPB; Infused Over: 60 mins; Site: right jugular; 06/27 01:53 Follow up: Response: No adverse reaction; IV Status: Completed infusion 06/26 23:16 Drug: Zosyn 3.375 grams Route: IVPB; Infused Over: 60 mins; Site: right jugular; 06/27 01:53 Follow up: Response: No adverse reaction; IV Status: Completed infusion 06/26 23:46 Drug: Aspirin Suppository 300 mg Route: [place]; 06/27 01:53 Follow up: Response: No adverse reaction Disposition: 06/26 22:55 Chart complete. cp 06/27 08:12 Co-signature as Attending Physician, Bill Jimenez MD I agree with the assessment and estefany plan of care. Disposition: 06/26/20 22:44 Transfer ordered to Other Acute Care Facility. Diagnosis are Acute kidney failure, unspecified, Hyperkalemia, Non-ST elevation (NSTEMI) myocardial infarction, Small bowel ischemia. - Reason for transfer: Higher level of care. - Accepting physician is DR Torres. - Condition is Serious. - Problem is new. - Symptoms have improved. Signatures: Dispatcher [employer] EDNC Bill Jimenez MD MD cha Attema, Lee, FOREST RESOURCES PROFESSOR-C FOREST RESOURCES PROFESSOR-Cla1 Bill Acevedo PA PA cp Rossy Thapa, RN RN Toño De Los Santos RN [email or web address] Corrections: (The following items were deleted from the chart) 06/26 20:47 20:44 Normal except: NA 127; K 6.1; CL 90; GLUC 62; BUN 37; CRE 3.24; GFR 15. cp cp 21:24 20:47 CORONAVIRUS+MR.LAB.BRZ ordered. EDNC EDNC 22:47 22:44 06/26/2020 22:44 Transfer ordered to Other Acute Care Facility. Diagnosis is cp Acute kidney failure, unspecified; Hyperkalemia; Non-ST elevation (NSTEMI) myocardial infarction; Small bowel ischemia. Reason for transfer: Higher level of care. Accepting physician is Doctor. Condition is Serious. Problem is new. Symptoms have improved. cp 06/27 01:54 06/26 22:47 06/26/2020 22:44 Transfer ordered to Other Acute Care Facility. Diagnosis wh is Acute kidney failure, unspecified; Hyperkalemia; Non-ST elevation (NSTEMI) myocardial infarction; Small bowel ischemia. Reason for transfer: Higher level of care. Accepting physician is DR Torres. Condition is Serious. Problem is new. Symptoms have improved. cp
[2020-06-27] MEDS ORDERED: ASPIRIN 600 MG/SUPP PR ONE (00:05)
[2020-07-02 15:48] LABS: Urine Blood 3+ (Negative); Urine Glucose Negative (Negative); Urine Protein Negative (Negative); Urine Specific Gravity >=1.030 (1.005-1.030)
== END 2020-06-27 01:54 ==
LOC: ER 19:07
PROC: 05HP33Z Insertion of Infusion Device into Right External Jugular Vein, Percutaneous Approach (ICD-10-PCS; principal; 2020-06-27)
DX: I21.4 Non-ST elevation (NSTEMI) myocardial infarction (principal); N17.9 Acute kidney failure, unspecified; E87.5 Hyperkalemia; K55.9 Vascular disorder of intestine, unspecified; F20.9 Schizophrenia, unspecified; F17.210 Nicotine dependence, cigarettes, uncomplicated; Z20.822 Contact with and (suspected) exposure to COVID-19
CPT/HCPCS: 36415; 70450; 71045; 71250; 72125; 80048; 80076; 80307; 80320; 80329; 81003; 82550; 83605; 83690; 83735; 84145; 84484; 85025; 85610; 87040; 87205; 93005; 96361; 96365; 96366; 96375; 99285; J0610; J2405; J2543; J7030; U0003